=== PATIENT | male | born 1960 | race Caucasian/White ===

== ENCOUNTER → 2019-05-24 15:45 | Outpatient (CLI) | payer OTHER, SELFPAY ==
[2016-12-24 21:48] VITALS: BMI 28.5
[2019-05-24 18:17] LABS: Anion Gap 9 (5-15); BUN 17 mg/dL (7-18); BUN/Creat Ratio 11.7 RATIO (10-20); Chloride 104 mmol/L (98-107); Cholesterol 217 mg/dL (200); Creatinine, Serum 1.45 mg/dL (0.70-1.30); EST Glomerular Filtration Rate 53 mL/min (>60); Est Glom Filt Rate - Afr Amer 65 mL/min (>60); Glucose 149 mg/dL (74-106); High Density Lipoprotein 30 mg/dL; Potassium 3.7 mmol/L (3.5-5.1); Sodium Level 139 mmol/L (136-145); Triglycerides 270 mg/dL; Very Low Density Lipoprotein 54 mg/dL (5-40)
== END ==
PROVIDERS: Family Provider Family Medicine; PCP Family Medicine; Referring Provider Family Medicine; Visit Provider Family Medicine
DX: E78.00 Pure hypercholesterolemia, unspecified (principal); I10 Essential (primary) hypertension
CPT/HCPCS: 36415; 80048; 80061

== ENCOUNTER → 2020-04-24 12:07 | Outpatient (CLI) | payer OTHER, SELFPAY ==
[2016-12-24 21:48] VITALS: BMI 28.5
--- NOTE | 2020-04-24 12:12 | RAD_ITS ---
STUDY: X-RAY - PARANASAL SINUSES REASON FOR EXAM: Male, 59 years old. HEADACHES ACROSS FOREHeaD AND TEMPORAL AND THROUGHOUT FOR ABOUT 1 YEAR NOW. TECHNIQUE: 4 view(s) of the paranasal sinuses were obtained. COMPARISON: None. FINDINGS: Normal visualized frontal, maxillary, ethmoidal and sphenoid sinuses. Normal visualized facial bones. The soft tissue structures are unremarkable. RAD/Sinuses min 3 Views IMPRESSION: Normal x-rays of the paranasal sinuses. Electronically Signed: Leroy Corcoran, at 15:29 EDT , Service support ,
== END ==
PROVIDERS: PCP Family Medicine; Referring Provider Family Medicine; Visit Provider Family Medicine
DX: R51 Headache (principal)
CPT/HCPCS: 70220

== ENCOUNTER → 2020-09-12 11:02 | Outpatient (CLI) | payer OTHER, SELFPAY ==
[2016-12-24 21:48] VITALS: BMI 28.5
[2020-09-12 13:05] LABS: AST(SGOT) 16 U/L (15-37); Alanine Aminotransfer ALT/SGPT 41 U/L (16-61); Alkaline Phosphatase 79 U/L (45-117); Anion Gap 6 (5-15); BUN 16 mg/dL (7-18); Chloride 103 mmol/L (98-107); Cholesterol 133 mg/dL (200); Creatinine, Serum 1.14 mg/dL (0.70-1.30); EST Glomerular Filtration Rate 70 mL/min (>60); Est Glom Filt Rate - Afr Amer 85 mL/min (>60); Globulin 4.2 g/dL (2.2-4.2); Glucose 100 mg/dL (74-106); High Density Lipoprotein 43 mg/dL; PSA,Total - Annual Screen 1.68 ng/mL (0.00-4.00); Potassium 3.9 mmol/L (3.5-5.1); Protein, Total 8.2 g/dL (6.4-8.2); Sodium Level 138 mmol/L (136-145); Triglycerides 85 mg/dL; Very Low Density Lipoprotein 17 mg/dL (5-40)
== END ==
PROVIDERS: PCP Family Medicine; Referring Provider Family Medicine; Visit Provider Family Medicine
DX: E78.00 Pure hypercholesterolemia, unspecified (principal); Z12.5 Encounter for screening for malignant neoplasm of prostate
CPT/HCPCS: 36415; 80053; 80061; 84153; G0103

== ENCOUNTER → 2021-01-14 10:13 | Outpatient (CLI) | payer OTHER, SELFPAY ==
--- NOTE | 2021-01-14 10:18 | CT_ITS ---
STUDY: CT ABDOMEN AND PELVIS WITH CONTRAST REASON FOR EXAM: Male, 60 years old. DIVERTICULITIS, LLQ PAIN SINCE SAT, ELEV WBC, HTN, HERNIA REPAIR WITH MESH RADIATION DOSAGE (If Supplied By Facility): CTDIvol = ( 13.27 ) mGy, DLP = ( 853.63 ) mGycm TECHNIQUE: Transaxial images were obtained from the dome of the diaphragm to the symphysis pubis without oral contrast. Oral and amp; IV Gastrografin and amp; 100mL Isovue-300 was administered. Sagittal and coronal images were reconstructed. Individualized dose optimization techniques were used for this CT. COMPARISON: None. FINDINGS: The visualized lung bases are unremarkable. The visualized portions of the heart are within normal limits. Normal liver. Normal gallbladder and extrahepatic biliary system. Normal spleen. Normal pancreas. Normal bilateral adrenal glands. There is a cyst in the right kidney measures 4.3 cm. Normal left kidney. Normal visualized stomach. Normal small intestine. There is diverticulosis, with thickening of the sigmoid colon wall, and pericolonic inflammation changes consistent with acute diverticulitis. There is non-visualization of the appendix. There is diffuse atherosclerotic calcification of the abdominal aorta, without a demonstrated aneurysm. Normal inferior vena cava. Normal retroperitoneum. Normal urinary bladder. Normal abdominal wall. Normal osseous structures. CT/Abdomen/Pelvis WITH Contrast IMPRESSION: Sigmoid diverticulitis. Electronically Signed: Jorge Smith MD at 14:20 EST Tel , Service support ,
[2021-01-14 10:21] LABS: Absolute Lymphocyte Count 2.45 X10^3/uL (0.83-4.51); Absolute Neutrophil Count 9.2 X10^3/uL (2.0-7.7); Basophil# 0.05 X10^3/uL; Basophil% 0.4 % (0-1); Eosinophils% 0.8 % (0-5); Hematocrit 42.4 % (40-54); Hemoglobin 14.7 g/dL (13.0-16.5); Lymphocyte # 2.45 X10^3/ul (4.0); Lymphocyte % 18.7 % (19-41); Mean Corp Hgb Conc 34.7 g/dL (32-36); Mean Corpuscular Hgb 32.5 pg (27.0-32.0); Mean Corpuscular Volume 93.6 fL (80-94); Monocyte# 1.25 X10^3/uL; Monocyte% 9.5 % (0-10); NRBC Flagged by Analyzer 0 % (0-5); Neutrophil # 9.21 X10^3/uL (2.7-7.7); Neutrophil % 70.2 % (47-70); Platelet Count 238 K/mm3 (150-450); RBC Distribution Width SD 41.6 fl (35.1-43.9); Red Blood Count 4.53 M/mm3 (4.6-6.2); White Blood Count 13.1 K/mm3 (4.4-11.0)
[2021-01-14 10:45] LABS: ALB/GLOB Ratio 0.8 RATIO (0.9-2.4); AST(SGOT) 7 U/L (15-37); Alanine Aminotransfer ALT/SGPT 25 U/L (16-61); Albumin, Serum 3.9 g/dL (3.2-5.0); Alkaline Phosphatase 72 U/L (45-117); Anion Gap 4 (5-15); BUN 20 mg/dL (7-18); BUN/Creat Ratio 17.7 RATIO (10-20); Calcium,Total 9.5 mg/dL (8.5-10.1); Chloride 100 mmol/L (98-107); Creatinine, Serum 1.13 mg/dL (0.70-1.30); EST Glomerular Filtration Rate 71 mL/min (>60); Est Glom Filt Rate - Afr Amer 86 mL/min (>60); Globulin 4.7 g/dL (2.2-4.2); Glucose 112 mg/dL (74-106); Potassium 4.4 mmol/L (3.5-5.1); Protein, Total 8.6 g/dL (6.4-8.2); Sodium Level 135 mmol/L (136-145)
[2021-01-14 10:47] LABS: Lactic Acid 0.8 mmol/L (0.4-1.9)
== END ==
PROVIDERS: PCP Family Medicine; Referring Provider Family Medicine; Visit Provider Family Medicine
DX: K57.92 Diverticulitis of intestine, part unspecified, without perforation or abscess without bleeding (principal); R10.9 Unspecified abdominal pain
CPT/HCPCS: 36415; 74177; 80053; 83605; 85025; Q9967; A4216

== ENCOUNTER → 2021-05-29 17:50 | Outpatient (CLI) | payer OTHER, SELFPAY ==
[2016-12-24 21:48] VITALS: BMI 28.5
[2021-05-29 17:51] LABS: Bacteria 0 SEEN /hpf (None Seen); Mucous, Urine 0 SEEN /hpf (<or=2+); Squamous Epithelial Cells - UA 0 SEEN /hpf (0-5); White Blood Cells 0 SEEN /hpf (0-5)
[2021-05-29 18:44] LABS: Color, Urine Yellow (Yellow); Glucose, Dipstick Normal (Normal); Ketone-Dipstick 5 mg/dl (Negative); Leukocyte Esterase-Dipstick 25 /ul (Negative); Nitrite-Dipstick Negative (Negative); Occult Blood-Urine 150 /ul (Negative); Protein-Dipstick Negative (Negative); Specific Gravity, Urine 1.025 (1.002-1.030); Urine Bilirubin Dipstick Negative (Negative); Urine Clarity Clear (Clear); Urine Urobilinogen Normal (Normal)
[2021-05-29 19:04] LABS: Red Blood Cells-Urine 0-5 SEEN /hpf (0-5)
== END ==
PROVIDERS: PCP Family Medicine; Referring Provider Family Medicine; Visit Provider Family Medicine
DX: R31.9 Hematuria, unspecified (principal)
CPT/HCPCS: 81001; 87086

== ENCOUNTER → 2021-06-06 13:11 | Outpatient (CLI) | payer OTHER, SELFPAY ==
--- NOTE | 2021-06-06 13:17 | CT_ITS ---
STUDY: CT BRAIN WITHOUT CONTRAST REASON FOR EXAM: Male, 60 years old. Severe headache RADIATION DOSAGE (If Supplied By Facility): CTDIvol = ( 38.43 ) mGy, DLP = ( 712.69 ) mGycm TECHNIQUE: Transaxial CT imaging of the brain was performed without administration of intravenous contrast material. Individualized dose optimization techniques were used for this CT. COMPARISON: No relevant priors. FINDINGS: Normal soft tissue structures. Normal calvarium. Normal size ventricles and extra-axial spaces for the patient''s age. Normal white matter tracts of the cerebral hemispheres. Normal basal ganglia and thalami. Normal brainstem. Normal cerebellum. There is no intracranial hemorrhage. There are no findings of an acute ischemic infarction. Normal visualized paranasal sinuses. CT/Brain/Head without Contrast IMPRESSION: Normal unenhanced CT scan of the brain. Electronically Signed: Broderick Almazan MD at 13:47 EDT , Service support ,
== END ==
PROVIDERS: PCP Family Medicine; Referring Provider Family Medicine; Visit Provider Family Medicine
DX: R51.9 Headache, unspecified (principal)
CPT/HCPCS: 70450

== ENCOUNTER → 2022-12-14 | Outpatient (CLI) | payer OTHER, SELFPAY ==
[2022-12-14 12:32] LABS: Absolute Lymphocyte Count 2.43 X10^3/uL (0.83-4.51); Absolute Neutrophil Count 4.1 X10^3/uL (2.0-7.7); Basophil# 0.06 X10^3/uL; Basophil% 0.8 % (0-1); Eosinophil# 0.17 X10^3/uL; Eosinophils% 2.3 % (0-5); Hematocrit 42.4 % (40-54); Hemoglobin 14.9 g/dL (13.0-16.5); Lymphocyte # 2.43 X10^3/ul (0.83-4.51); Mean Corp Hgb Conc 35.1 g/dL (32-36); Mean Corpuscular Hgb 32.3 pg (27.0-32.0); Mean Corpuscular Volume 91.8 fL (80-94); Mean Platelet Vol. 9.4 fl (6.2-12.0); Monocyte# 0.63 X10^3/uL; Monocyte% 8.6 % (0-10); NRBC Flagged by Analyzer 0 % (0-5); Neutrophil # 4.06 X10^3/uL (2.7-7.7); Neutrophil % 55.2 % (47-70); Platelet Count 256 K/mm3 (150-450); RBC Distribution Width CV 12.2 % (11.6-14.6); Red Blood Count 4.62 M/mm3 (4.6-6.2); White Blood Count 7.4 K/mm3 (4.4-11.0)
[2022-12-14 12:38] LABS: Erythrocyte Sedimentation Rate 26 mm/hr (0-20); Vitamin D,25 Hydroxy 27.5 ng/mL
[2022-12-14 13:08] LABS: AST(SGOT) 50 U/L (15-37); Alanine Aminotransfer ALT/SGPT 128 U/L (16-61); Albumin, Serum 4.3 g/dL (3.2-5.0); Alkaline Phosphatase 84 U/L (45-117); Anion Gap 6 (5-15); BUN 22 mg/dL (7-18); BUN/Creat Ratio 21.2 RATIO (10-20); Calcium,Total 9.3 mg/dL (8.5-10.1); Chloride 109 mmol/L (98-107); Cholesterol 107 mg/dL (200); Creatinine, Serum 1.04 mg/dL (0.70-1.30); EST Glomerular Filtration Rate 77 mL/min (>60); Est Glom Filt Rate - Afr Amer 94 mL/min (>60); Globulin 4.5 g/dL (2.2-4.2); Glucose 100 mg/dL (74-106); High Density Lipoprotein 28 mg/dL; PSA,Total - Annual Screen 2.41 ng/mL (0.00-4.00); Potassium 4.2 mmol/L (3.5-5.1); Protein, Total 8.8 g/dL (6.4-8.2); Sodium Level 138 mmol/L (136-145); Thyroid Stim Hormone (TSH) 1.55 uIU/mL (0.358-3.74); Triglycerides 80 mg/dL; Very Low Density Lipoprotein 16 mg/dL (5-40)
== END | disposition home or self-care (01) ==
LOC: MFPLAB 11:18
PROVIDERS: PCP Family Medicine; Referring Provider Family Medicine; Visit Provider Family Medicine
DX: R14.0 Abdominal distension (gaseous) (principal); Z12.5 Encounter for screening for malignant neoplasm of prostate; I10 Essential (primary) hypertension; L40.9 Psoriasis, unspecified
CPT/HCPCS: 36415; 80053; 80061; 82306; 84153; 84443; 85025; 85652; G0103

== ENCOUNTER → 2023-04-26 | Outpatient (CLI) | payer OTHER, SELFPAY ==
[2023-04-26 18:15] LABS: Absolute Lymphocyte Count 1.94 X10^3/uL (0.83-4.51); Absolute Neutrophil Count 6.6 X10^3/uL (2.0-7.7); Basophil# 0.04 X10^3/uL; Basophil% 0.4 % (0-1); Eosinophil# 0.14 X10^3/uL; Eosinophils% 1.4 % (0-5); Hematocrit 37.5 % (40-54); Hemoglobin 12.9 g/dL (13.0-16.5); Lymphocyte # 1.94 X10^3/ul (0.83-4.51); Mean Corp Hgb Conc 34.4 g/dL (32-36); Mean Corpuscular Hgb 32.1 pg (27.0-32.0); Mean Corpuscular Volume 93.3 fL (80-94); Mean Platelet Vol. 9.7 fl (6.2-12.0); Monocyte# 0.93 X10^3/uL; Monocyte% 9.6 % (0-10); NRBC Flagged by Analyzer 0 % (0-5); Neutrophil # 6.61 X10^3/uL (2.7-7.7); Neutrophil % 68.3 % (47-70); Platelet Count 266 K/mm3 (150-450); RBC Distribution Width CV 11.9 % (11.6-14.6); RBC Distribution Width SD 41.2 fl (35.1-43.9); Red Blood Count 4.02 M/mm3 (4.6-6.2); White Blood Count 9.7 K/mm3 (4.4-11.0)
[2023-04-26 18:54] LABS: ALB/GLOB Ratio 0.8 RATIO (0.9-2.4); AST(SGOT) 15 U/L (15-37); Alanine Aminotransfer ALT/SGPT 25 U/L (16-61); Albumin, Serum 3.5 g/dL (3.2-5.0); Alkaline Phosphatase 64 U/L (45-117); Amylase 37 U/L (25-115); Anion Gap 7 (5-15); BUN 16 mg/dL (7-18); BUN/Creat Ratio 18.8 RATIO (10-20); Calcium,Total 9.3 mg/dL (8.5-10.1); Chloride 105 mmol/L (98-107); Creatinine, Serum 0.85 mg/dL (0.70-1.30); EST Glomerular Filtration Rate 98 mL/min (>60); Est Glom Filt Rate - Afr Amer 118 mL/min (>60); Globulin 4.4 g/dL (2.2-4.2); Glucose 88 mg/dL (74-106); Lipase 22 U/L (13-75); Potassium 3.9 mmol/L (3.5-5.1); Protein, Total 7.9 g/dL (6.4-8.2); Sodium Level 138 mmol/L (136-145)
== END | disposition home or self-care (01) ==
LOC: MFPLAB 14:51
PROVIDERS: Family Medicine; PCP Family Medicine; Visit Provider Family Medicine
DX: R10.9 Unspecified abdominal pain (principal); K57.92 Diverticulitis of intestine, part unspecified, without perforation or abscess without bleeding
CPT/HCPCS: 36415; 80053; 82150; 83690; 85025

== ENCOUNTER → 2023-05-04 | Outpatient (CLI) | payer OTHER, SELFPAY ==
--- NOTE | 2023-05-04 06:50 | CT_ITS ---
STUDY: CT CHEST, ABDOMEN T PELVIS WITH CONTRAST REASON FOR EXAM: Male, 62 years old. History of diverticulitis. RADIATION DOSAGE (If Supplied By Facility): CTDIvol = ( 14.18 ) mGy, DLP = ( 1301.49 ) mGycm TECHNIQUE: Transaxial imaging was performed following intravenous administration of Oral and amp;amp; IV Readi-CAT and amp;amp; 100mL Isovue-370. Multiplanar coronal and sagittal images were reformatted. Individualized dose optimization techniques were used for this CT. COMPARISON: Comparison is made with prior study dated January 14, 2021. FINDINGS: CHEST Small benign-appearing bilateral axillary lymph nodes. The lungs are normal. There is no demonstrated pleural abnormality. There are calcifications of the coronary arteries. Normal mediastinum. Normal hilar regions. Normal unenhanced pulmonary arteries. Normal aorta arch and descending thoracic aorta. There are multi-level degenerative changes of the thoracic spine. ABDOMEN Normal liver. Normal gallbladder and extrahepatic biliary system. Normal spleen. Normal pancreas. Normal bilateral adrenal glands. 3.1 cm x 4.8 cm cyst in the right right parapelvic region. Normal left kidney. Normal visualized stomach. Normal small intestine. There is evidence of a thickening of the distal portion of the descending colon as well as the sigmoid colon down to the rectum with increased markings in the surrounding peritoneal fat suggestive of a colitis. Scattered diverticula are seen within the sigmoid colon. Moderate amount of fecal material is seen in the colon. The appendix is visualized and appears normal. There is scattered atherosclerotic calcification of the abdominal aorta, without a demonstrated aneurysm. Normal inferior vena cava. Normal retroperitoneum. Normal abdominal wall. There are degenerative changes of the visualized lumbar spine. PELVIS Normal urinary bladder. Normal visualized small intestine. Normal visualized colon. There is no pelvic fluid. There is no pelvic lymphadenopathy or mass lesion. Normal visualized pelvic arteries. CT/CT Chest, Abd, Pel w/Contrast IMPRESSION: Colitis is seen involving the distal portion of the descending colon as well as the sigmoid colon down to the rectum. Diverticular disease is seen in the region of the sigmoid colon. Right parapelvic cyst. Electronically Signed: Leroy Corcoran MD at 11:13 EDT ,
== END | disposition home or self-care (01) ==
LOC: CT 06:48
PROVIDERS: PCP Family Medicine; Referring Provider Family Medicine; Visit Provider Family Medicine
DX: K57.92 Diverticulitis of intestine, part unspecified, without perforation or abscess without bleeding (principal)
CPT/HCPCS: 71260; 74177; Q9967

== ENCOUNTER 2023-06-22 08:09 | Emergency (ER) | payer OTHER, SELFPAY ==
[2023-06-22 08:10] VITALS: BP 139/80; PULSE 67; RESP 14; TEMP 37.2; O2SAT 98; BMI 25.3
[2023-06-22 08:57] LABS: Absolute Neutrophil Count 7.3 X10^3/uL (2.0-7.7); Basophil# 0.06 X10^3/uL; Basophil% 0.6 % (0-1); Hematocrit 41.3 % (40-54); Hemoglobin 14.1 g/dL (13.0-16.5); Lymphocyte % 21.4 % (19-41); Mean Corp Hgb Conc 34.1 g/dL (32-36); Mean Corpuscular Hgb 32.3 pg (27.0-32.0); Mean Corpuscular Volume 94.5 fL (80-94); Mean Platelet Vol. 9.3 fl (6.2-12.0); Monocyte# 0.59 X10^3/uL; Monocyte% 5.7 % (0-10); NRBC Flagged by Analyzer 0 % (0-5); Neutrophil # 7.31 X10^3/uL (2.7-7.7); Neutrophil % 70.9 % (47-70); Platelet Count 293 K/mm3 (150-450); RBC Distribution Width CV 12.5 % (11.6-14.6); RBC Distribution Width SD 43.8 fl (35.1-43.9); Red Blood Count 4.37 M/mm3 (4.6-6.2); White Blood Count 10.3 K/mm3 (4.4-11.0)
[2023-06-22 09:11] LABS: Anion Gap 5 (5-15); BUN 26 mg/dL (7-18); BUN/Creat Ratio 25.2 RATIO (10-20); Calcium,Total 9.4 mg/dL (8.5-10.1); Chloride 105 mmol/L (98-107); Creatinine, Serum 1.03 mg/dL (0.70-1.30); EST Glomerular Filtration Rate 78 mL/min (>60); Est Glom Filt Rate - Afr Amer 95 mL/min (>60); Estimated Creatinine Clearance 83.71 ml/min; Glucose 120 mg/dL (74-106); Sodium Level 138 mmol/L (136-145)
--- NOTE | 2023-06-22 09:15 | EKG12_ITS ---
Test Reason : ABD PAIN Blood Pressure : / mmHG Vent. Rate : 056 BPM Atrial Rate : 056 BPM P-R Int : 150 ms QRS Dur : 088 ms QT Int : 414 ms P-R-T Axes : -20 049 042 degrees QTc Int : 399 ms Sinus bradycardia Otherwise normal ECG Confirmed by JV ROWLEY ([id number]), editor farm journal JAELYN GOMEZ ([id number]) on 06/26/2023 9:34:07 AM Referred By: Confirmed By:JV ROWLEY
--- NOTE | 2023-06-22 09:20 | EDS_ITS ---
HPI History of Present Illness Chief Complaint: Abd Pain Narrative Narrative: Patient is a 62-year-old male who is presenting to the ER today with chief complaint of acute on chronic left lower quadrant and left upper quadrant abdominal pain. Patient has a history of diverticulitis. Last time patient was on antibiotics was 2 or 3 months ago. Patient has no fever, chills. Patient had positive COVID last week, he tested COVID again a few days ago and it was negative. Patient has no chest pain or shortness of breath. Patient's had multiple episodes of nausea vomiting this morning with left upper quadrant pain. Patient felt like he was constipated a few days ago, patient's constipation improved and he had normal bowel movement yesterday. Patient attempted to go to work today, he works in a factory. Patient's symptoms did not improve, so he came to the ER for evaluation. Patient drove to the ER. Patient's had a few episodes of clear sputum, yellowish bile, and also dry heaving prior to arrival and in the ER as well. Patient had no recent traveling, no other sick contacts. No rash. No difficulty urinating. No history of kidney stones. Patient has been told by his surgeon that he may have to have a partial colectomy secondary to multiple episodes of diverticulitis in the past 5 years. Patient states he has had approximately 2-3 CAT scans in the past 5 years, not multiple. The risk of radiation and multiple CAT scans in the future were discussed as well. [facility] Home Medications multivitamin (Multiple Vitamins tablet) 1 ea PO DAILY 12/24/16 [History Last Gaeg en Unknown] omega-3 fatty acids 300 mg capsule (Fish Oil) 300 mg PO DAILY 12/24/16 [History Last Taken Unknown] dicyclomine 10 mg capsule 20 mg (2 x 10 mg) PO TIDAC #8 CAPSULES 06/22/23 [Rx Last Taken Unknown] ondansetron 4 mg disintegrating tablet 4 mg PO 4X/DAY PRN PRN Nausea #10 tabs 06/22/23 [Rx Last Taken Unknown] Allergy/AdvReac Type Severity Reaction Status Date / Time Penicillins Allergy Other Verified 06/22/23 08:09 Social History Smoking Status: Never smoker ROS ROS ED ROS Narrative REVIEW OF SYSTEMS: Unless otherwise stated in this report the patient's positive and negative responses for review of systems for constitutional, eyes, ENT, cardiovascular, respiratory, gastrointestinal, neurological, , musculoskeletal, and integument systems and related systems to the presenting problem are either stated in the history of present illness or were not pertinent or were negative for the symptoms and/or complaints related to the presenting medical problem. EXAM Physical Exam Narrative Exam Narrative: Vital signs reviewed and patient is not hypoxic. General: The patient appears well and in no apparent distress. Patient is resting comfortably on cart. Not toxic, lethargic, or listless. Skin: Warm, dry, no pallor noted. There is no rash noted. Head: Normocephalic, atraumatic Eye: Normal conjunctiva, no drainage, EOMI. PERRL. Ears, Nose, Mouth, and Throat: oral mucosa is moist. Nares patent. Cardiovascular: Regular Rate and Rhythm, no murmurs, gallops, or rubs Respiratory: Patient is in no distress, no accessory muscle use, lungs are clear to auscultation, no wheezing, rales or rhonchi Back: non-tender, no CVA tenderness bilaterally to percussion. NO CTLS midline or paraspinal tenderness to palpation. GI: Soft, patient has mild to moderate left upper quadrant tenderness to palpation, mild left lower quadrant tenderness palpation, mild left flank pain, no CVA tenderness bilateral, no peritoneal signs, no rash, normal bowel sounds x4, otherwise no tenderness to palpation, no masses appreciated. No rebound, guarding, or rigidity noted. Musculoskeletal: The patient has full range of motion of all extremities and joints with no difficulty. Patient has no motor, no sensory deficits. Neurological: A&O x4, normal speech, no focal neurological deficits. Psychiatric: Cooperative Const Vital Signs: 06/22/23 08:10 06/22/23 09:35 06/22/23 10:17 Temperature 99 F Temperature Source Temporal Pulse Rate 67 56 L 65 Respiratory Rate 14 22 H 16 Blood Pressure 139/80 H 130/88 H 129/85 H Blood Pressure Mean 99 102 99 Pulse Ox 98 99 99 Oxygen Delivery Method Room Air Room Air Room Air [facility] Lab Data Attestation: I reviewed the patient's lab results. Labs: Laboratory Results - last 24 hr 06/22/23 06/22/23 06/22/23 08:39 08:39 08:39 WBC 10.3 RBC 4.37 L Hgb 14.1 Hct 41.3 MCV 94.5 H MCH 32.3 H MCHC 34.1 RDW Std Deviation 43.8 RDW Coeff of Dhaval 12.5 Plt Count 293 MPV 9.3 Immature Gran % (Auto) 0.400 Neut % (Auto) 70.9 H Lymph % (Auto) 21.4 [place] % (Auto) 5.7 Eos % (Auto) 1.0 Baso % (Auto) 0.6 Absolute Neuts (auto) 7.3 Absolute Lymphs (auto) 2.20 Nucleated RBC % 0 Sodium 138 138 Potassium 4.0 4.1 Chloride 105 Carbon Dioxide Anion Gap BUN Creatinine Estim Creat Clear Calc Est GFR (MDRD) Af Amer Est GFR (MDRD) Non-Af BUN/Creatinine Ratio Glucose Lactic Acid Calcium Total Bilirubin AST ALT Alkaline Phosphatase Troponin I High Sens Total Protein Albumin Globulin Albumin/Globulin Ratio Lipase Urine Color Urine Clarity Urine pH Ur Specific [place] Urine Protein Urine Glucose (UA) Urine Ketones Urine Occult Blood Urine Nitrite Urine Bilirubin Urine Urobilinogen Ur Leukocyte Esterase Urine RBC Urine WBC Ur Squamous Epith Cells Urine Bacteria Urine Mucus 06/22/23 06/22/23 06/22/23 08:39 08:39 08:39 WBC RBC Hgb Hct MCV MCH MCHC RDW Std Deviation RDW Coeff of Dhaval Plt Count MPV Immature Gran % (Auto) Neut % (Auto) Lymph % (Auto) [place] % (Auto) Eos % (Auto) Baso % (Auto) Absolute Neuts (auto) Absolute Lymphs (auto) Nucleated RBC % Sodium Potassium Chloride 106 Carbon Dioxide 28.0 27.0 Anion Gap 5 5 BUN 26 H Creatinine Estim Creat Clear Calc Est GFR (MDRD) Af Amer Est GFR (MDRD) Non-Af BUN/Creatinine Ratio Glucose Lactic Acid Calcium Total Bilirubin AST ALT Alkaline Phosphatase Troponin I High Sens Total Protein Albumin Globulin Albumin/Globulin Ratio Lipase Urine Color Urine Clarity Urine pH Ur Specific [place] Urine Protein Urine Glucose (UA) Urine Ketones Urine Occult Blood Urine Nitrite Urine Bilirubin Urine Urobilinogen Ur Leukocyte Esterase Urine RBC Urine WBC Ur Squamous Epith Cells Urine Bacteria Urine Mucus 06/22/23 06/22/23 06/22/23 08:39 08:39 08:39 WBC RBC Hgb Hct MCV MCH MCHC RDW Std Deviation RDW Coeff of Dhaval Plt Count MPV Immature Gran % (Auto) Neut % (Auto) Lymph % (Auto) [place] % (Auto) Eos % (Auto) Baso % (Auto) Absolute Neuts (auto) Absolute Lymphs (auto) Nucleated RBC % Sodium Potassium Chloride Carbon Dioxide Anion Gap BUN 26 H Creatinine 1.03 1.02 Estim Creat Clear Calc 83.71 84.53 Est GFR (MDRD) Af Amer 95 Est GFR (MDRD) Non-Af BUN/Creatinine Ratio Glucose Lactic Acid Calcium Total Bilirubin AST ALT Alkaline Phosphatase Troponin I High Sens Total Protein Albumin Globulin Albumin/Globulin Ratio Lipase Urine Color Urine Clarity Urine pH Ur Specific [place] Urine Protein Urine Glucose (UA) Urine Ketones Urine Occult Blood Urine Nitrite Urine Bilirubin Urine Urobilinogen Ur Leukocyte Esterase Urine RBC Urine WBC Ur Squamous Epith Cells Urine Bacteria Urine Mucus 06/22/23 06/22/23 06/22/23 08:39 08:39 08:39 WBC RBC Hgb Hct MCV MCH MCHC RDW Std Deviation RDW Coeff of Dhaval Plt Count MPV Immature Gran % (Auto) Neut % (Auto) Lymph % (Auto) [place] % (Auto) Eos % (Auto) Baso % (Auto) Absolute Neuts (auto) Absolute Lymphs (auto) Nucleated RBC % Sodium Potassium Chloride Carbon Dioxide Anion Gap BUN Creatinine Estim Creat Clear Calc Est GFR (MDRD) Af Amer 96 Est GFR (MDRD) Non-Af 78 79 BUN/Creatinine Ratio 25.2 H 25.5 H Glucose 120 H Lactic Acid Calcium Total Bilirubin AST ALT Alkaline Phosphatase Troponin I High Sens Total Protein Albumin Globulin Albumin/Globulin Ratio Lipase Urine Color Urine Clarity Urine pH Ur Specific [place] Urine Protein Urine Glucose (UA) Urine Ketones Urine Occult Blood Urine Nitrite Urine Bilirubin Urine Urobilinogen Ur Leukocyte Esterase Urine RBC Urine WBC Ur Squamous Epith Cells Urine Bacteria Urine Mucus 06/22/23 06/22/23 06/22/23 08:39 08:39 09:20 WBC RBC Hgb Hct MCV MCH MCHC RDW Std Deviation RDW Coeff of Dhaval Plt Count MPV Immature Gran % (Auto) Neut % (Auto) Lymph % (Auto) [place] % (Auto) Eos % (Auto) Baso % (Auto) Absolute Neuts (auto) Absolute Lymphs (auto) Nucleated RBC % Sodium Potassium Chloride Carbon Dioxide Anion Gap BUN Creatinine Estim Creat Clear Calc Est GFR (MDRD) Af Amer Est GFR (MDRD) Non-Af BUN/Creatinine Ratio Glucose 117 H Lactic Acid 1.0 Calcium 9.4 9.4 Total Bilirubin 0.40 AST 20 ALT 46 Alkaline Phosphatase 79 Troponin I High Sens 8 Total Protein 9.1 H Albumin 4.0 Globulin 5.1 H Albumin/Globulin Ratio 0.8 L Lipase 23 Urine Color Urine Clarity Urine pH Ur Specific [place] Urine Protein Urine Glucose (UA) Urine Ketones Urine Occult Blood Urine Nitrite Urine Bilirubin Urine Urobilinogen Ur Leukocyte Esterase Urine RBC Urine WBC Ur Squamous Epith Cells Urine Bacteria Urine Mucus 06/22/23 10:20 WBC RBC Hgb Hct MCV MCH MCHC RDW Std Deviation RDW Coeff of Dhaval Plt Count MPV Immature Gran % (Auto) Neut % (Auto) Lymph % (Auto) [place] % (Auto) Eos % (Auto) Baso % (Auto) Absolute Neuts (auto) Absolute Lymphs (auto) Nucleated RBC % Sodium Potassium Chloride Carbon Dioxide Anion Gap BUN Creatinine Estim Creat Clear Calc Est GFR (MDRD) Af Amer Est GFR (MDRD) Non-Af BUN/Creatinine Ratio Glucose Lactic Acid Calcium Total Bilirubin AST ALT Alkaline Phosphatase Troponin I High Sens Total Protein Albumin Globulin Albumin/Globulin Ratio Lipase Urine Color Yellow Urine Clarity Clear Urine pH 6.0 Ur Specific [place] 1.025 Urine Protein 30 H Urine Glucose (UA) Normal Urine Ketones Negative Urine Occult Blood 25 H Urine Nitrite Negative Urine Bilirubin Negative Urine Urobilinogen Normal Ur Leukocyte Esterase Negative Urine RBC 0 SEEN Urine WBC 0 SEEN Ur Squamous Epith Cells 0 SEEN Urine Bacteria 0 SEEN Urine Mucus 0 SEEN Patient has evidence of protein in his urine with mild hematuria. Patient has a history of mild hematuria in his urine, patient is aware of this. Patient will follow-up with PCP for repeat urine when he is feeling better with next appointment. EKG Initial EKG: Attestation: I personally reviewed and interpreted this EKG as follows: Comments: EKG interpretation. Sinus bradycardia at 56 beats a minute. Normal axis deviation. No acute ST elevation, no acute ectopy QTc of 399 Additional Tests and Interventions Additional Tests or Interventions: Reassessment of patient's abdomen at discharge shows mild left upper quadrant tenderness to palpation, pain is improved. Patient has no left lower quadrant tenderness palpation. Patient says this pain has been in the area where he has had diverticulitis before. No significant lab indication to perform CT of the abdomen pelvis at this time. Patient is aware this could be very early diverticulitis, but I do not feel comfortable starting patient on prophylactic antibiotics or ordering another CAT scan of his abdomen pelvis at this time because he will have future multiple CAT scans most likely secondary to his abdominal history with possible surgery in the future. Patient is comfortable not being on antibiotic at this time, he will be sent home with Rylee, patient will follow-up and call PCP if he continues to have pain in the next 2 or 3 days and at that point may need prophylactic antibiotics for diverticulitis. Patient is comfortable with this plan. Patient has been given a couple days off work if needed. Patient repeat abdominal exam does not show moderate to severe pain, no peritoneal signs, patient is comfortable at discharge as am I. Discharge Plan Triage Chief Complaint: Abd Pain ED Provider: Laci Pires Dx/Rx/DC Orders Clinical Impression: Nausea & vomiting, Abdominal pain, Dehydration Instructions: Abdominal Pain, ED Dehydration (Adult), ED Vomiting (Adult) Prescriptions: New ondansetron [ondansetron] 4 mg tablet,disintegrating 4 mg PO 4X/DAY PRN PRN (Reason: Nausea) Qty: 10 0RF dicyclomine 10 mg capsule 20 mg PO TIDAC Qty: 8 0RF No Action multivitamin [Multiple Vitamins] 1 EACH tablet 1 ea PO DAILY omega-3 fatty acids [Fish Oil] 300 MG capsule 300 mg PO DAILY Stand Alone Forms: ED Work / School Excuse Primary Care Provider: Golden Owens Referrals: Golden Owens MD [Primary Care Provider] - Activity Restrictions/Additional Instructions: Continue to increase fluids. Follow-up with PCP. Use nausea and belly cramping medication if needed . If your pain persists in the next 2 or 3 days to left upper/left lower quadrant, call PCP for possible prophylactic antibiotics. No indication for a CAT scan of your abdomen pelvis at this time. Your symptoms have improved. 2 L of IV fluid have been given to you. Return back to the ER if significant abdominal pain, nausea or vomiting return. Disposition Disposition: Home, Self Care
[2023-06-22] MEDS: 0.9% Normal Saline 1,000 ML 999 ML IV ×2 (09:32→10:55)
[2023-06-22] MEDS: Ondansetron 4 MG/2 ML Vial IV (09:32)
[2023-06-22] MEDS: Dicyclomine 20 MG/2 ML Vial IM (09:32)
[2023-06-22] MEDS: Ketorolac 15 MG/ML Vial IV (09:32)
[2023-06-22 09:35] VITALS: BP 130/88; PULSE 56; RESP 22; O2SAT 99
[2023-06-22 09:47] LABS: ALB/GLOB Ratio 0.8 RATIO (0.9-2.4); AST(SGOT) 20 U/L (15-37); Alanine Aminotransfer ALT/SGPT 46 U/L (16-61); Alkaline Phosphatase 79 U/L (45-117); Anion Gap 5 (5-15); BUN 26 mg/dL (7-18); BUN/Creat Ratio 25.5 RATIO (10-20); Calcium,Total 9.4 mg/dL (8.5-10.1); Chloride 106 mmol/L (98-107); Creatinine, Serum 1.02 mg/dL (0.70-1.30); EST Glomerular Filtration Rate 79 mL/min (>60); Est Glom Filt Rate - Afr Amer 96 mL/min (>60); Estimated Creatinine Clearance 84.53 ml/min; Globulin 5.1 g/dL (2.2-4.2); Glucose 117 mg/dL (74-106); Lipase 23 U/L (13-75); Potassium 4.1 mmol/L (3.5-5.1); Protein, Total 9.1 g/dL (6.4-8.2); Sodium Level 138 mmol/L (136-145); Troponin-I HS 8 pg/mL (3.0-78.0)
[2023-06-22 10:17] VITALS: BP 129/85; PULSE 65; RESP 16; O2SAT 99
--- NOTE | 2023-06-22 10:24 | ED.RN ---
Patient ambulatory to bathroom, gait steady. Urine collected and sent to lab
[2023-06-22 10:32] LABS: Bacteria 0 SEEN /hpf (None Seen); Mucous, Urine 0 SEEN /hpf (<or=2+); Red Blood Cells-Urine 0 SEEN /hpf (0-5); Squamous Epithelial Cells - UA 0 SEEN /hpf (0-5); White Blood Cells 0 SEEN /hpf (0-5)
[2023-06-22 10:46] LABS: Color, Urine Yellow (Yellow); Glucose, Dipstick Normal (Normal); Ketone-Dipstick Negative (Negative); Leukocyte Esterase-Dipstick Negative /ul (Negative); Nitrite-Dipstick Negative (Negative); Occult Blood-Urine 25 /ul (Negative); Protein-Dipstick 30 mg/dl (Negative); Specific Gravity, Urine 1.025 (1.002-1.030); Urine Bilirubin Dipstick Negative (Negative); Urine Clarity Clear (Clear); Urine Urobilinogen Normal (Normal)
[2023-06-22 12:06] VITALS: BP 132/75; PULSE 68; RESP 15; O2SAT 99
== END 2023-06-22 12:07 | disposition home or self-care (01) ==
PROVIDERS: Emergency Provider Emergency Medicine; PCP Family Medicine; Visit Provider Emergency Medicine
DX: E86.0 Dehydration (principal); R11.2 Nausea with vomiting, unspecified; R10.9 Unspecified abdominal pain; Z86.16 Personal history of COVID-19
CPT/HCPCS: 80048; 80053; 81001; 83605; 83690; 84484; 85025; 93005; 96361; 96372; 96374; 96375; 99283; J7030; A4216; J2405

== ENCOUNTER → 2024-01-18 | Outpatient (CLI) | payer OTHER, SELFPAY ==
[2024-01-18 18:30] LABS: AST(SGOT) 18 U/L (15-37); Alanine Aminotransfer ALT/SGPT 34 U/L (16-61); Albumin, Serum 4.1 g/dL (3.2-5.0); Alkaline Phosphatase 73 U/L (45-117); Anion Gap 6 (5-15); BUN 18 mg/dL (7-18); BUN/Creat Ratio 16.8 RATIO (10-20); Calcium,Total 9.3 mg/dL (8.5-10.1); Chloride 104 mmol/L (98-107); Cholesterol 149 mg/dL (200); Creatinine, Serum 1.07 mg/dL (0.70-1.30); EST Glomerular Filtration Rate 75 mL/min (>60); Est Glom Filt Rate - Afr Amer 90 mL/min (>60); Globulin 4.2 g/dL (2.2-4.2); Glucose 92 mg/dL (74-106); High Density Lipoprotein 38 mg/dL; PSA,Total - Annual Screen 2.24 ng/mL (0.00-4.00); Potassium 3.8 mmol/L (3.5-5.1); Protein, Total 8.3 g/dL (6.4-8.2); Sodium Level 137 mmol/L (136-145); Triglycerides 91 mg/dL; Very Low Density Lipoprotein 18 mg/dL (5-40)
== END | disposition home or self-care (01) ==
LOC: MFPLAB 15:31
PROVIDERS: PCP Family Medicine; Visit Provider Family Medicine
DX: E78.5 Hyperlipidemia, unspecified (principal); Z12.5 Encounter for screening for malignant neoplasm of prostate
CPT/HCPCS: 36415; 80053; 80061; 84153; G0103

== ENCOUNTER 2024-04-11 07:45 | Observation (INO) | payer OTHER, SELFPAY ==
[2024-04-11] VITALS (7 sets, daily range): BP systolic 106–152; BP diastolic 70–96; PULSE 52–77; RESP 12–26; TEMP 36–36.6; O2SAT 94–99; BMI 26.9
--- NOTE | 2024-04-11 07:57 | MRI_ITS ---
HISTORY: Back pain x 1 week, left buttock and hip pain radiates into left knee. TECHNIQUE: Multiplanar and multisequence MR images of the lumbar spine were obtained without intravenous contrast. 149 images. COMPARISON: CT 05/04/2023. FINDINGS: VERTEBRAE: Vertebral body heights maintained with chronic very mild anterior wedging of L1. Mild degenerative endplate changes at multiple levels. No other significant bone marrow signal abnormality. ALIGNMENT: No anterior or posterior subluxation. SPINAL CANAL: Normal morphology and position of the conus medullaris at T12-L1. 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 INTERVERTEBRAL DISCS: T12-L1: Very mild disc bulge without significant central canal stenosis or foraminal narrowing based on the sagittal images. L1-2: Mild posterior disc bulge osteophyte complex with facet arthropathy resulting in mild central canal stenosis. No significant foraminal narrowing. L2-3: Very mild disc bulge with facet arthropathy. No significant central canal stenosis or foraminal narrowing. L3-4: 5 x 12 x 9 mm left foraminal disc extrusion with superior migration resulting in left L3 nerve root impingement and moderate left foraminal narrowing. No significant central canal stenosis. L4-5, L5-S1: Very mild disc bulges with facet arthropathy resulting in mild bilateral foraminal narrowing. No significant central canal stenosis. SOFT TISSUES: 4 cm right renal cyst again seen. MRI/Spine Lumbar (Routine) IMPRESSION: Left foraminal disc extrusion of L3-4 resulting in left nerve root impingement and moderate left foraminal narrowing. Mild multilevel degenerative disc disease of the lumbar spine with mild spinal canal stenosis of L1-2. Mild bilateral foraminal narrowing in the lower lumbar spine. Electronically Signed: Bhavna Casey MD at 10:45 EDT ,
--- NOTE | 2024-04-11 07:58 | EDS_ITS ---
HPI History of Present Illness Chief Complaint: Back Detail of Chief Complaint: Back pain Informant: patient Narrative Narrative: Patient presents with severe back pain that has had for approximately a week. Denies injury but was doing some yard work prior to the pain starting. Has had no falls. Seen by his primary care physician and had some sort of a pain shot yesterday. Not get much relief. Patient describes the pain is in his left buttock and hip and radiating into his left low back as well as down his left leg to about the knee. He has numbness to the knee. Denies weakness in the leg. Unable to go to work due to the amount of pain that he is having. Denies loss of bowel or bladder function. PFSH PFSH Home Medications ?Medication ?Instructions ?Recorded ?Last Taken ?Type multivitamin (Multiple Vitamins 1 ea PO DAILY 12/24/16 Unknown History tablet) omega-3 fatty acids 300 mg capsule 300 mg PO DAILY 12/24/16 Unknown History (Fish Oil) dicyclomine 10 mg capsule 20 mg (2 x 10 mg) PO TIDAC #8 06/22/23 Unknown Rx CAPSULES ondansetron 4 mg disintegrating 4 mg PO 4X/DAY PRN PRN Nausea #10 06/22/23 Unkn own Rx tablet tabs Allergy/AdvReac Type Severity Reaction Status Date / Time Penicillins Allergy Other Verified 06/22/23 08:09 Social History Smoking Status: Never smoker ROS ROS ED Review of Systems ROS Unobtainable: other Constitutional Constitutional ED: Reports lethargy; Denies chills, fever(s), sweats or weight loss Eyes Eyes: Denies blurry vision, change in vision or diplopia ENT ENT ED: Denies rhinorrhea or sore throat Cardiovascular Cardiovascular: Denies chest pain, orthopnea or racing heartbeat Respiratory/Chest Respiratory/Chest: Denies cough, dyspnea, dyspnea on exertion, orthopnea or sputum Gastrointestinal Gastrointestinal: Denies abdominal pain, diarrhea, nausea or vomiting Genitourinary Genitourinary ED: Denies dysuria, hematuria or urinary frequency Musculoskeletal Musculoskeletal: Reports back pain; Denies arthralgias, myalgias or neck pain Integumentary Denies abscess, Abrasions or rash Neurologic Neurologic: Denies headache(s) or weakness Psychiatric Psychiatric: Denies anxiety, depression or suicidal thoughts Endocrine Endocrinology: Denies polydipsia, polyphagia or polyuria Hematologic/Lymphatic Hematologic/Lymphatic: Denies easy bleeding, easy bruising or lymphadenopathy Allergic/Immunologic Allergic/Immunologic ED: Denies mouth swelling, tongue swelling or urticaria EXAM Physical Exam Const Vital Signs: 04/11/24 07:45 04/11/24 07:47 04/11/24 10:58 Temperature 96.8 F L Temperature Source Temporal Pulse Rate 68 61 Respiratory Rate 26 H 16 Blood Pressure 149/96 H 119/76 Blood Pressure Mean 113 90 Pulse Ox 97 97 Oxygen Delivery Method Room Air Room Air Positive well nourished and well developed General Appearance ED: well developed and NAD HEENT Reports TM's clear and moist mucous membranes normocephalic and atraumatic; Negative for trauma or tenderness Tympanic Membrane ED: Yes TM's clear Eyes PERRL and EOMs intact bilaterally General Eye ED: Negative for pale conjunctiva or scleral icterus Neck no lymphadenopathy, supple and no JVD General: Negative for tenderness Chest Wall inspection of chest normal and palpation of chest normal Chest: Negative for tenderness Resp normal respiratory effort and clear to auscultation bilaterally Effort and Inspection: Negative for respiratory distress or pain with movement Auscultation: Negative for rhonchi, wheezes or diminished lung sounds Cardio regular rate, regular rhythm, S1 normal heart sound, S2 normal heart sound and no murmurs Peripheral Pulses: pulses 2+ throughout GI normal to inspection, nondistended, normoactive bowel sounds, soft to palpation, non-tender, non-distended and no masses Back/Spine no CVA tenderness and no thoracic nor lumbar tenderness Back/Spine Narrative: Positive straight leg raise with pain approximately 45 degrees while supine. Deep tendon reflexes plus 2 out of 4 bilaterally at the patella and Achilles. Normal L5 extension. Normal sensation to light touch in lower leg and somewhat decreased to the thigh and knee. No significant tenderness over the thoracic or lumbar spine. Pain somewhat reproducible into the left buttock and piriformis. Extremity normal to inspection General Extremety ED: Negative for edema General Extremity: Negative for edema Neuro oriented x3, CN's II-XII intact bilaterally, no sensory deficits noted and gait normal Sensorium / Orientation: awake, alert, oriented to person, oriented to place and oriented to time Motor Exam: strength 5/5 throughout and strength abnormal Psych mental status grossly normal Skin no rashes or lesions noted and no wounds MDM MDM MDM Narrative Medical decision making narrative: Patient presents with severe low back pain radiating to his left leg. IV line established. He was medicated with Dilaudid and Valium as well as Zofran. He continued to experience significant pain and was given a second dose of Dilaudid. Continues to complain a lot of pain with movement. MRI of the lumbar spine obtained showed left foraminal disc extrusion at L3-4 resulting in left nerve root impingement and moderate left foraminal narrowing. Patient had mild multilevel degenerative disc disease of the lumbar spine with mild spinal canal stenosis of L1-2. Spoke with Dr. De Jesus who is on for orthopedics would be happy to consult on the case. Will discuss with hospitalist to evaluate for admission for intractable back pain and lumbar radiculopathy Lab Data Attestation: I reviewed the patient's lab results. Labs: Laboratory Results - last 24 hr 04/11/24 04/11/24 08:00 11:08 WBC 6.5 RBC 4.24 L Hgb 13.4 Hct 39.3 L MCV 92.7 MCH 31.6 MCHC 34.1 RDW Std Deviation 41.1 RDW Coeff of Dhaval 12.0 Plt Count 237 MPV 8.8 Immature Gran % (Auto) 0.200 Neut % (Auto) 62.2 Lymph % (Auto) 27.8 [place] % (Auto) 7.2 Eos % (Auto) 1.8 Baso % (Auto) 0.8 Absolute Neuts (auto) 4.1 Absolute Lymphs (auto) 1.81 Nucleated RBC % 0 Sodium 137 Potassium 4.3 Chloride 108 H Carbon Dioxide 26.0 Anion Gap 3 L BUN 20 H Creatinine 1.14 Est GFR (MDRD) Af Amer 84 Est GFR (MDRD) Non-Af 69 BUN/Creatinine Ratio 17.5 Glucose 135 H Calcium 9.1 Urine Color Yellow Urine Clarity Clear Urine pH 6.0 Ur Specific [place] 1.015 Urine Protein Negative Urine Glucose (UA) Normal Urine Ketones Negative Urine Occult Blood 25 H Urine Nitrite Negative Urine Bilirubin Negative Urine Urobilinogen Normal Ur Leukocyte Esterase Negative Urine RBC 0-5 SEEN Urine WBC 0 SEEN Ur Squamous Epith Cells 0-5 SEEN Urine Bacteria 0 SEEN Urine Mucus 0 SEEN Radiography Diagnostic Testing: Clinical Impression(s) from Imaging Studies Lumbar Spine MRI 04/11/24 07:57 IMPRESSION: Left foraminal disc extrusion of L3-4 resulting in left nerve root impingement and moderate left foraminal narrowing. Mild multilevel degenerative disc disease of the lumbar spine with mild spinal canal stenosis of L1-2. Mild bilateral foraminal narrowing in the lower lumbar spine. Electronically Signed: Bhavna Casey MD at 10:45 EDT , Discharge Plan Triage Chief Complaint: Back ED Provider: Margot Lundy Dx/Rx/DC Orders Clinical Impression: Intractable back pain, Left lumbar radiculopathy Prescriptions: No Action multivitamin [Multiple Vitamins] 1 EACH tablet 1 ea PO DAILY omega-3 fatty acids [Fish Oil] 300 MG capsule 300 mg PO DAILY ondansetron [ondansetron] 4 mg tablet,disintegrating 4 mg PO 4X/DAY PRN PRN (Reason: Nausea) Qty: 10 0RF dicyclomine 10 mg capsule 20 mg PO TIDAC Qty: 8 0RF Primary Care Provider: Abelardo Owens Referrals: Abelardo Owens MD [Primary Care Provider] - Print Language: Nauruan Disposition Disposition: Acute Care Hospital [facility]
[2024-04-11] MEDS: HYDROmorphone 1 MG/ML Syringe IV ×3 (08:05→12:14)
[2024-04-11] MEDS: 0.9% Normal Saline (1000mL) 1,000 ML 150 ML IV ×2 (08:05→12:24)
[2024-04-11] MEDS: diazePAM 5 MG Tablet PO (08:05)
[2024-04-11] MEDS: Ondansetron 4 MG/2 ML Vial IV (08:05)
[2024-04-11 08:12] LABS: Absolute Lymphocyte Count 1.81 X10^3/uL (0.83-4.51); Absolute Neutrophil Count 4.1 X10^3/uL (2.0-7.7); Basophil# 0.05 X10^3/uL; Basophil% 0.8 % (0-1); Eosinophil# 0.12 X10^3/uL; Eosinophils% 1.8 % (0-5); Hematocrit 39.3 % (40-54); Hemoglobin 13.4 g/dL (13.0-16.5); Lymphocyte # 1.81 X10^3/ul (0.83-4.51); Lymphocyte % 27.8 % (19-41); Mean Corp Hgb Conc 34.1 g/dL (32-36); Mean Corpuscular Hgb 31.6 pg (27.0-32.0); Mean Corpuscular Volume 92.7 fL (80-94); Mean Platelet Vol. 8.8 fl (6.2-12.0); Monocyte# 0.47 X10^3/uL; Monocyte% 7.2 % (0-10); NRBC Flagged by Analyzer 0 % (0-5); Neutrophil # 4.06 X10^3/uL (2.7-7.7); Neutrophil % 62.2 % (47-70); Platelet Count 237 K/mm3 (150-450); RBC Distribution Width SD 41.1 fl (35.1-43.9); Red Blood Count 4.24 M/mm3 (4.6-6.2); White Blood Count 6.5 K/mm3 (4.4-11.0)
[2024-04-11 08:24] LABS: Anion Gap 3 (5-15); BUN 20 mg/dL (7-18); BUN/Creat Ratio 17.5 RATIO (10-20); Calcium,Total 9.1 mg/dL (8.5-10.1); Chloride 108 mmol/L (98-107); Creatinine, Serum 1.14 mg/dL (0.70-1.30); EST Glomerular Filtration Rate 69 mL/min (>60); Est Glom Filt Rate - Afr Amer 84 mL/min (>60); Glucose 135 mg/dL (74-106); Potassium 4.3 mmol/L (3.5-5.1); Sodium Level 137 mmol/L (136-145)
[2024-04-11 11:12] LABS: Bacteria 0 SEEN /hpf (None Seen); Mucous, Urine 0 SEEN /hpf (<or=2+); White Blood Cells 0 SEEN /hpf (0-5)
[2024-04-11 11:14] LABS: Color, Urine Yellow (Yellow); Glucose, Dipstick Normal (Normal); Ketone-Dipstick Negative (Negative); Leukocyte Esterase-Dipstick Negative /ul (Negative); Nitrite-Dipstick Negative (Negative); Occult Blood-Urine 25 /ul (Negative); Protein-Dipstick Negative (Negative); Specific Gravity, Urine 1.015 (1.002-1.030); Urine Bilirubin Dipstick Negative (Negative); Urine Clarity Clear (Clear); Urine Urobilinogen Normal (Normal)
[2024-04-11 11:22] LABS: Red Blood Cells-Urine 0-5 SEEN /hpf (0-5); Squamous Epithelial Cells - UA 0-5 SEEN /hpf (0-5)
[2024-04-11] MEDS: dexAMETHasone 10 MG/ML Vial IV (12:14)
[2024-04-11] MEDS: Acetaminophen 500 MG Tablet 1000 MG PO ×2 (14:34→21:07)
[2024-04-11] MEDS: oxyCODONE 5 MG Tablet 10 MG PO ×2 (14:35→19:40)
[2024-04-11] MEDS: Ketorolac 30 MG/ML Syringe IV ×2 (14:35→21:06)
--- NOTE | 2024-04-11 15:25 | HP.PCM.HOS_ITS ---
HPI - General General Date of Admission: 04/11/24 Date of Service: 04/11/24 Chief Complaint: hip pain HPI Narrative GLADIS RAMIREZ, is a 63 M who presents with back pain. Symptoms began about a week ago when he was doing some yard work. Pain is in his back and extending down his left leg. Patient has gotten worse during this time but more or less constant. He tries to just position which certain positions help alleviate it but does not fully eradicate the pain. He denies any bowel or bladder incontinence nor any saddle anesthesia. He has never had this problem before. Patient presented to the emergency room because the pain was so severe. He had an MRI in the emergency room that showed a left foraminal disc extrusion of L3-4 resulting in left nerve root impingement and moderate left foraminal narrowing. ED physician spoke with Dr. Rebolledo who recommended steroids and will see the patient consultation. ON LICENSE OF [facility] Medical History Hyperlipidemia HTN (hypertension) Home Medications ?Medication ?Instructions ?Recorded ?Last Taken ?Type multivitamin (Multiple Vitamins 1 ea PO DAILY 12/24/16 Unknown History tablet) atorvastatin 10 mg tablet 10 mg PO QHS 04/11/24 Unknown History lisinopril 20 mg tablet 20 mg PO DAILY 04/11/24 Unknown History tizanidine 4 mg tablet 4 mg PO TID PRN PRN pain 04/11/24 Unknown History Allergy/AdvReac Type Severity Reaction Status Date / Time Penicillins Allergy Other Verified 06/22/23 08:09 Family History (Updated 04/11/24 @ 15:[address] Demond Nino DO) Other CAD (coronary artery disease) Social History Smoking Status: Never smoker ROS ROS Narrative All review of systems were negative except as mentioned above in the history of present illness and the other review of systems. Vital Signs Vital Signs Vital Signs: 04/11/24 07:45 04/11/24 07:47 04/11/24 10:58 Temperature 36.0 C L Temperature Source Temporal Pulse Rate 68 61 Respiratory Rate 26 H 16 Blood Pressure 149/96 H 119/76 Blood Pressure Mean 113 90 Blood Pressure Source Blood Pressure Position Blood Pressure Location Pulse Ox 97 97 Oxygen Delivery Method Room Air Room Air 04/11/24 12:24 04/11/24 13:00 04/11/24 14:33 Temperature 36.0 C L 36.6 C Temperature Source Oral Pulse Rate 55 L 52 L 58 L Respiratory Rate 12 12 18 Blood Pressure 131/75 H 134/74 H 152/87 H Blood Pressure Mean 93 94 108 Blood Pressure Source Monitor Blood Pressure Position Left Lateral Blood Pressure Location Left Forearm Pulse Ox 97 94 99 Oxygen Delivery Method Room Air Weight Weight: 90.265 kg Body Mass Index (BMI) 26.9 Physical Exam Const alert and no apparent distress HEENT normocephalic and head/scalp atraumatic Neck no lymphadenopathy and supple Resp normal respiratory effort, no retractions, no use of accessory muscles and clear to auscultation bilaterally Cardio regular rate, regular rhythm, S1 normal heart sound and S2 normal heart sound GI normal to inspection, nondistended, normoactive bowel sounds, soft to palpation, non-tender and non-distended Extremity normal to inspection and full ROM Neuro Neuro Narrative: Diminished sensation of left lower extremity compared to the right. DTRs intact. Moves all extremities spontaneously. Results Lab / Micro Data 04/11/24 08:00 04/11/24 08:00 Labs: Laboratory Results - last 24 hr 04/11/24 08:00: WBC 6.5, RBC 4.24 L, Hgb 13.4, Hct 39.3 L, MCV 92.7, MCH 31.6, MCHC 34.1, RDW Std Deviation 41.1, RDW Coeff of Dhaval 12.0, Plt Count 237, MPV 8.8, Immature Gran % (Auto) 0.200, Neut % (Auto) 62.2, Lymph % (Auto) 27.8, [place] % (Auto) 7.2, Eos % (Auto) 1.8, Baso % (Auto) 0.8, Absolute Neuts (auto) 4.1, Absolute Lymphs (auto) 1.81, Nucleated RBC % 0, Sodium 137, Potassium 4.3, C hloride 108 H, Carbon Dioxide 26.0, Anion Gap 3 L, BUN 20 H, Creatinine 1.14, Est GFR (MDRD) Af Amer 84, Est GFR (MDRD) Non-Af 69, BUN/Creatinine Ratio 17.5, Glucose 135 H, Calcium 9.1 04/11/24 11:08: Urine Color Yellow, Urine Clarity Clear, Urine pH 6.0, Ur Specific [place] 1.015, Urine Protein Negative, Urine Glucose (UA) Normal, Urine Ketones Negative, Urine Occult Blood 25 H, Urine Nitrite Negative, Urine Bilirubin Negative, Urine Urobilinogen Normal, Ur Leukocyte Esterase Negative, Urine RBC 0-5 SEEN, Urine WBC 0 SEEN, Ur Squamous Epith Cells 0-5 SEEN, Urine Bacteria 0 SEEN, Urine Mucus 0 SEEN Imaging Radiology Impression Lumbar Spine MRI 04/11/24 07:57 IMPRESSION: Left foraminal disc extrusion of L3-4 resulting in left nerve root impingement and moderate left foraminal narrowing. Mild multilevel degenerative disc disease of the lumbar spine with mild spinal canal stenosis of L1-2. Mild bilateral foraminal narrowing in the lower lumbar spine. Electronically Signed: Bhavna Casey MD at 10:45 EDT Reading Location ID and State: [facility] / [place] Tel , Service support , Assessment & Plan Assessment/Plan (1) Left lumbar radiculopathy: PLAN: Plan Left L3-4 nerve root impingement secondary to disc herniation. * Pain control * Patient did receive 10 mg of dexamethasone in the emergency room. Start prednisone 60/day for 7days, then taper off * Physical therapy Occupational Therapy * Consult spine surgery for additional recommendations. Chronic conditions: * HTN: stable. continue lisinopril * HLP: continue atorvastatin. Dispostion: TBD. Charges/Coding Visit Charges Inpatient E&M: 96986 Init Hosp L2
[2024-04-11] MEDS: 0.9% Saline Lock 10 ML Syringe IV (21:08)
[2024-04-12] MEDS: oxyCODONE 5 MG Tablet 10 MG PO ×4 (02:32→17:37)
[2024-04-12 02:37] VITALS: BP 114/58; PULSE 63; RESP 18; TEMP 36.6; O2SAT 98
[2024-04-12] MEDS: 0.9% Saline Lock 10 ML Syringe IV ×4 (03:07→19:37)
[2024-04-12] MEDS: Ketorolac 30 MG/ML Syringe IV ×3 (03:07→17:37)
[2024-04-12] MEDS: Acetaminophen 500 MG Tablet 1000 MG PO ×3 (06:29→21:50)
[2024-04-12] MEDS: Dicyclomine 10 MG Capsule 20 MG PO (06:29)
--- NOTE | 2024-04-12 07:07 | PN.HOSP_ITS ---
Reason for Visit Reason for Visit: Diagnoses Radiculopathy, lumbar region (04/11/24) Subjective Subjective Still with left leg pain, though improved. Objective Data Objective Data Vital Signs: Vital Signs Temp Pulse Resp BP Pulse Ox O2 Del Method 36.6 C 63 18 114/58 L 98 Room Air 04/12/24 02:37 04/12/24 02:37 04/12/24 02:37 04/12/24 02:37 04/12/24 02:37 04/12/24 02:37 Oxygen Delivery Method Room Air Weight: 90.265 kg Body Mass Index (BMI) 26.9 Intake & Output: Intake and Output for Last 24 Hours 04/10/24 04/11/24 04/12/24 23:59 23:59 23:59 Intake Total 1232.5 / 1232.5 300 / 300 Balance 1232.5 / 1232.5 300 / 300 Lab / Micro Data 04/11/24 08:00 04/11/24 08:00 Labs: Laboratory Results - last 24 hr 04/11/24 08:00: WBC 6.5, RBC 4.24 L, Hgb 13.4, Hct 39.3 L, MCV 92.7, MCH 31.6, MCHC 34.1, RDW Std Deviation 41.1, RDW Coeff of Dhaval 12.0, Plt Count 237, MPV 8.8, Immature Gran % (Auto) 0.200, Neut % (Auto) 62.2, Lymph % (Auto) 27.8, [place] % (Auto) 7.2, Eos % (Auto) 1.8, Baso % (Auto) 0.8, Absolute Neuts (auto) 4.1, Absolute Lymphs (auto) 1.81, Nucleated RBC % 0, Sodium 137, Potassium 4.3, C hloride 108 H, Carbon Dioxide 26.0, Anion Gap 3 L, BUN 20 H, Creatinine 1.14, Est GFR (MDRD) Af Amer 84, Est GFR (MDRD) Non-Af 69, BUN/Creatinine Ratio 17.5, Glucose 135 H, Calcium 9.1 04/11/24 11:08: Urine Color Yellow, Urine Clarity Clear, Urine pH 6.0, Ur Specific [place] 1.015, Urine Protein Negative, Urine Glucose (UA) Normal, Urine Ketones Negative, Urine Occult Blood 25 H, Urine Nitrite Negative, Urine Bilirubin Negative, Urine Urobilinogen Normal, Ur Leukocyte Esterase Negative, Urine RBC 0-5 SEEN, Urine WBC 0 SEEN, Ur Squamous Epith Cells 0-5 SEEN, Urine Bacteria 0 SEEN, Urine Mucus 0 SEEN Radiography Diagnostic Testing: Radiology Impression Lumbar Spine MRI 04/11/24 07:57 IMPRESSION: Left foraminal disc extrusion of L3-4 resulting in left nerve root impingement and moderate left foraminal narrowing. Mild multilevel degenerative disc disease of the lumbar spine with mild spinal canal stenosis of L1-2. Mild bilateral foraminal narrowing in the lower lumbar spine. Electronically Signed: Bhavna Casey MD at 10:45 EDT , Physical Exam Const alert and no apparent distress HEENT head/scalp atraumatic and moist oral mucous membranes Resp normal respiratory effort, no retractions, no use of accessory muscles and clear to auscultation bilaterally Cardio regular rate and regular rhythm Extremity normal to inspection and no clubbing, cyanosis or edema Neuro oriented x3 Neuro Narrative: DTR 3/4 in left patella. diminished sensation in LLE compared to the right. Psych affect normal Assessment & Plan Assessment/Plan (1) Left lumbar radiculopathy: PLAN: Plan Left L3-4 nerve root impingement secondary to disc herniation. * Pain control * Patient did receive 10 mg of dexamethasone in the emergency room. Start prednisone 60/day for 7days, then taper off * Physical therapy Occupational Therapy * Consult spine surgery for additional recommendations. Chronic conditions: * HTN: stable. continue lisinopril * HLP: continue atorvastatin. Dispostion: TBD. Charges/Coding Visit Charges Inpatient E&M: 01424 Subs Hosp L2
[2024-04-12 09:15] VITALS: BP 111/69; PULSE 62; RESP 18; TEMP 36.6; O2SAT 98
[2024-04-12] MEDS: HYDROmorphone 0.5 MG/0.5 ML SYRINGE IV ×2 (09:22→19:37)
[2024-04-12] MEDS: Multivitamins,Therapeutic Tablet 1 TABLET PO (09:23)
--- NOTE | 2024-04-12 13:35 | CONS.ORTHO ---
HPI Consult Data Date of Consult: 04/12/24 HPI Narrative HPI Narrative: GLADIS RAMIREZ, is a 63 M who presents with low back pain and left lower extremity radiation. He was admitted to the hospital yesterday for pain control. I was requested by hospitalist team for consult. I saw the patient today in 301. He was sitting in recliner having lunch. He says that the pain started about a week ago. 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 He had severe pain that did not improve with the intramuscular steroid injection by PCP few days ago. The pain became severe enough that she started radiating down the left lower extremity into the left anterior thigh region up to the knee. He denies any right-sided symptoms. He denies any previous low back issues. He is unable to walk long distances. He says that the pain has slightly improved since yesterday and he has walked slightly earlier today. He has not had any epidural injections or physical therapy other than what he has had here and as an inpatient. [facility] Medical History Hyperlipidemia HTN (hypertension) Home Medications ?Medication ?Instructions ?Recorded ?Last Taken ?Type multivitamin (Multiple Vitamins 1 ea PO DAILY 12/24/16 Unknown History tablet) atorvastatin 10 mg tablet 10 mg PO QHS 04/11/24 Unknown History lisinopril 20 mg tablet 20 mg PO DAILY 04/11/24 Unknown History tizanidine 4 mg tablet 4 mg PO TID PRN PRN pain 04/11/24 Unknown History Allergy/AdvReac Type Severity Reaction Status Date / Time Penicillins Allergy Other Verified 06/22/23 08:09 Family History (Updated 04/11/24 @ 15:[address] Demond Nino DO) Other CAD (coronary artery disease) Social History Smoking Status: Never smoker Vital Signs Vital Signs Vital Signs: 04/11/24 14:33 04/11/24 20:03 04/11/24 20:06 Temperature 97.8 F 97.9 F Temperature Source Oral Oral Pulse Rate 58 L 77 Pulse Strength Normal (2+) Respiratory Rate 18 16 Blood Pressure 152/87 H 106/70 Blood Pressure Mean 108 82 Blood Pressure Source Monitor Monitor Blood Pressure Position Left Lateral Semi-Fowlers Blood Pressure Location Left Forearm Right Arm Pulse Ox 99 95 Oxygen Delivery Method Room Air Room Air 04/12/24 02:37 04/12/24 09:15 Temperature 97.9 F 97.9 F Temperature Source Oral Oral Pulse Rate 63 62 Pulse Strength Respiratory Rate 18 18 Blood Pressure 114/58 L 111/69 Blood Pressure Mean 76 83 Blood Pressure Source Monitor Monitor Blood Pressure Position Semi-Fowlers Semi-Fowlers Blood Pressure Location Right Arm Right Arm Pulse Ox 98 98 Oxygen Delivery Method Room Air Room Air Weight Weight: 199 lb Body Mass Index (BMI) 26.9 Physical Exam Narrative Examination of the lower back shows midline and left paraspinal redness. Neurologic motion of lower extremity shows grade 4+ power in left quadriceps all other muscle groups are 5 of 5 strength. Passive straight leg raise test is negative. Femoral stretch test is positive. Const alert and oriented x3 Lab / Micro Data 04/11/24 08:00 04/11/24 08:00 Assessment & Plan Assessment/Plan (1) Lumbar disc herniation with radiculopathy: PLAN: Plan I reviewed the MRI of the lumbar spine done yesterday. This shows L3-4 far lateral left-sided disc herniation causing severe L3 nerve compression. No upright x-rays available. Explained to him the imaging findings in detail. He has acute L3 radiculopathy on the left from the disc herniation. I explained to him the pathogenesis and natural history of acute disc herniations. Explained to him options of treatment which include continued nonoperative measures versus surgery. He does have some weakness in the left lower extremity, but he mentioned that his pain is improving with time overnight. I suggested oral versus epidural steroids through pain management. If the pain continues to improve, he could potentially avoid surgery unless weakness develops. If he continues to have significant pain and difficulties with activities of daily living, he may follow-up with me in a week if he continues to have significant pain and difficulties with activities of daily living, he may follow-up with me in a week to consider surgical intervention which would be an extraforaminal discectomy. Patient was in agreement. Charges/Coding Visit Charges Inpatient E&M: 24877 Init Hosp L3
[2024-04-12 14:13] VITALS: BP 116/76; PULSE 63; RESP 18; TEMP 36.9; O2SAT 98
--- NOTE | 2024-04-12 15:17 | CASEMGMT ---
Addendum entered by Nanda Baker 04/12/24 15:30: TC to Carla in PT to ask if they would work with pt on stairs tomorrow when they work with him. Original Note: PT OT Evals have been reviewed, OP PT recommended. RN CM into pt room, pt sitting up in chair with sitting at bedside. Introduced self and role. Pt made aware therapy recommending OP PT. Discussed DC plan regarding OP PT VS C, pt stated he prefers OP PT. Pt stated he has 12 or 13 steps to enter home and did not work with steps with therapy today. He also voices having a lot of pain still. Dr. Nino aware and states plan is to contact pain management for possible epidural. Pt aware. Pt is aware once he returns home and if it is to difficult to get in and out of home with stairs knows to call PCP or Dr. De Jesus for referral to [facility] PT.
--- NOTE | 2024-04-12 15:28 | PCM.CONS.GEN ---
Assessment & Plan Assessment/Plan (1) Lumbar disc herniation with radiculopathy: PLAN: Plan LLE radiculopathy consistent with L3 nerve root primarily, with some possible L4 inflammatory response. Pain is anterior left thigh, but also covers the anterior knee (more L4 territory), but does not extend down the whole lower extremity as would be classic for L4. Given significant stenosis, there may be somewhat limited central spread via left L3-L4 space, so central spread from L4-L5 may provide some steroid along the medial aspect of the herniation to couple with the L3-L4 TFESI. MRI was reviewed and shows L3-4 left-sided disc herniation causing significant L3 nerve compression. I reviewed Dr. Rebolledo's evaluation. Plan for left L3-L4 and L4-L5 TFESI. GIven he has significant functional limitations including limited ability to ambulate very far. -Continue current analgesic regimen including: toradol, oxycodone, and tylenol. -Hopefully he will respond well to the epidural and have less medicaiton needs and may avoid surgery. -Good strength at this time, so will monitor for symptomatic changes as this may push him more towards surgery. -Follow up 1 week after injection as outpatient. -Risks/benefits of injections were discussed at great length and patient was in agreement. HPI Consult Data Date of Consult: 04/12/24 HPI Narrative HPI Narrative: GLADIS RAMIREZ, is a 63 M who presents with low back pain and left lower extremity radiation. I have been consulted by Dr. Nino. Dr. Rebolledo evaluated the patient and recommends conservative treatment options at this time. He says that the pain started about a week ago. He was doing some yardwork, which may be the enciting event. The pain radiates fromt he back to the left anterior thigh. The pain does not extend beyond the knee. He was given a intramuscular steroid injection by his pcp a few days ago with little relief. The pain became severe enough that she started radiating down the left lower extremity into the left anterior thigh region up to the knee. He denies any right-sided symptoms. He denies any previous low back issues. He is unable to walk long distances. He says that the pain has slightly improved since yesterday and he has walked slightly earlier today. He has not had any epidural injections or physical therapy other than what he has had here and as an inpatient. [facility] Medical History Hyperlipidemia HTN (hypertension) Home Medications ?Medication ?Instructions ?Recorded ?Last Taken ?Type multivitamin (Multiple Vitamins 1 ea PO DAILY 12/24/16 Unknown History tablet) atorvastatin 10 mg tablet 10 mg PO QHS 04/11/24 Unknown History lisinopril 20 mg tablet 20 mg PO DAILY 04/11/24 Unknown History tizanidine 4 mg tablet 4 mg PO TID PRN PRN pain 04/11/24 Unknown History Allergy/AdvReac Type Severity Reaction Status Date / Time Penicillins Allergy Other Verified 06/22/23 08:09 Family History (Updated 04/11/24 @ 15:[address] Demond Nino, ) Other CAD (coronary artery disease) Social History Smoking Status: Never smoker ROS ROS Narrative All review of systems were negative except as mentioned above in the history of present illness and the other review of systems. Physical Exam Const alert and no apparent distress HEENT head/scalp atraumatic and moist oral mucous membranes Resp normal respiratory effort Extremity normal to inspection and no clubbing, cyanosis or edema Neuro oriented x3 Neuro Narrative: DTR physiologic in LE. Reduced sensation in LLE over anterior thigh and knee. Psych affect normal Lab / Micro Data 04/11/24 08:00 04/11/24 08:00 Imaging Lumbar MRI: Left foraminal disc extrusion of L3-4 resulting in left nerve root impingement and moderate left foraminal narrowing. Mild multilevel degenerative disc disease of the lumbar spine with mild spinal canal stenosis of L1-2. Mild bilateral foraminal narrowing in the lower lumbar spine.
[2024-04-12 19:33] VITALS: BP 125/107; PULSE 73; RESP 18; TEMP 36.5; O2SAT 97
[2024-04-13] VITALS (9 sets, daily range): BP systolic 111–135; BP diastolic 60–94; PULSE 53–64; RESP 16–18; TEMP 36.4–36.8; O2SAT 95–98; BMI 26.9
[2024-04-13] MEDS: HYDROmorphone 0.5 MG/0.5 ML SYRINGE IV (00:21)
[2024-04-13] MEDS: Ketorolac 30 MG/ML Syringe IV ×3 (02:53→15:55)
[2024-04-13] MEDS: 0.9% Saline Lock 10 ML Syringe IV ×2 (02:54→09:32)
[2024-04-13] MEDS: oxyCODONE 5 MG Tablet 10 MG PO ×3 (02:54→15:55)
[2024-04-13] MEDS: Dicyclomine 10 MG Capsule 20 MG PO ×2 (05:27→16:18)
[2024-04-13] MEDS: Acetaminophen 500 MG Tablet 1000 MG PO ×3 (05:28→21:23)
--- NOTE | 2024-04-13 07:15 | PN.HOSP_ITS ---
Reason for Visit Reason for Visit: Diagnoses Intervertebral disc disorders with radiculopathy, lumbar region (04/11/24) Radiculopathy, lumbar region (04/11/24) Subjective Subjective Feeling better. Still with pain in left hip, but more tolearable. Objective Data Objective Data Vital Signs: Vital Signs Temp Pulse Resp BP Pulse Ox O2 Del Method 36.6 C 60 18 129/73 H 96 Room Air 04/13/24 02:49 04/13/24 02:49 04/13/24 02:49 04/13/24 02:49 04/13/24 02:49 04/13/24 02:49 Oxygen Delivery Method Room Air Weight: 90.265 kg Body Mass Index (BMI) 26.9 Intake & Output: Intake and Output for Last 24 Hours 04/11/24 04/12/24 04/13/24 23:59 23:59 23:59 Intake Total 1232.5 / 1232.5 600 / 600 100 / 100 Balance 1232.5 / 1232.5 600 / 600 100 / 100 Lab / Micro Data 04/11/24 08:00 04/11/24 08:00 Physical Exam Const alert and no apparent distress HEENT head/scalp atraumatic and moist oral mucous membranes Extremity normal to inspection and full ROM Neuro Neuro Narrative: 2/4 DTR in left patella. Assessment & Plan Assessment/Plan (1) Left lumbar radiculopathy: PLAN: Plan Left L3-4 nerve root impingement secondary to disc herniation. * Pain control * Patient did receive 10 mg of dexamethasone in the emergency room. Start prednisone 60/day for 7days, then taper off * Physical therapy Occupational Therapy * CARLY Crouch on 04/14 of Pain Mgmt, plan for epidural injection. * Seen by Dr. Rebolledo of spine, follow up with him in 1 week. Conservative mgmt for now and hopefully avoid sugery. Chronic conditions: * HTN: stable. continue lisinopril * HLP: continue atorvastatin. Dispostion: TBD. Charges/Coding Visit Charges Inpatient E&M: 68761 Subs Hosp L1
--- NOTE | 2024-04-13 12:30 | RAD_ITS ---
PROCEDURE: Left L3-L4 and L4-L5 transforaminal epidural injection DATE OF EXAMINATION: April 13, 2024. INDICATION: Male, 63 years old. Chronic low back pain. FLUOROSCOPY TIME (if supplied): (24 seconds) minutes/seconds. 3 images were submitted. RAD/Fluor Guidance for Spine Inj IMPRESSION: Intraoperative images are provided for left L3-L4 and L4-L5 transforaminal epidural injection. Electronically Signed: Leroy Corcoran MD at 15:19 EDT ,
[2024-04-13] MEDS: Triamcinolone Acetonide 40 MG/ML Vial (14:50)
--- NOTE | 2024-04-13 15:51 | OP.PCM_ITS ---
Report of Operation Date of Procedure: 04/13/24 Pre-Operative Diagnosis: Lumbar radiculopathy, Lumbar disc herniation with radi culopathy Post-Operative Diagnosis: Lumbar radiculopathy, Lumbar disc herniation with radiculopathy Surgery/Procedure Performed:: Left L3-L4 Transforaminal Epidural Steroid Injection Surgeon: Orlin Crouch Type of Anesthesia: IV Sedation Specimen's removed: None Description of Procedure: The details of the procedure were reviewed with the patient who understands all of the risks and benefits involved. All questions have been answered, and the patient is aware of all alternative therapeutic options. Informed consent was obtained, and the patient was directed to the procedure room. A ?time-out? with two active identifiers of the patient, the procedure, and the site was performed. The patient was positioned prone on the fluoroscopy table. The back was widely sterilized using providine-iodine solution x3 and was draped in a sterile manner. Bupivacaine was used to make a skin wheel to anesthetize the skin and then used to anesthetize the subcutaneous tissue A 22 guage spinal needle was then advanced under AP, oblique and lateral fluroscopic guidance as appropriate. The needle was advanced until the tip made contact with the most infero-medial portion of the transverse process. The needle was then walked off and carefully advanced towards the foraminal. Proper needle position was then confirmed by multiple fluoroscopic views. An aspiration test was negative for blood, CSF, and other fluids. Thereafter, 1 mL of contrast was slowly injected (without incident) under live fluoroscopy and imaging revealed medial spread of the dye along the nerve root, and into the epidural space. No vascular uptake was noted. The steroid with 1cc of Bupivacaine in a total volume of 2 mL was then slowly injected slowly and intermittently without evidence of complication. Injection of contrast dye under live fluoroscopy (to confirm medial spread along the nerve root and into the epidural space) was performed at each treated nerve. The procedure was performed uneventfully and was well-tolerated by the patient. The patient was transferred to an observation room and recovered without incident. No adverse events were noted. All potential side effects and adverse events have been discussed with the patient. The patient has been instructed to call my clinic at the first sign of an adverse event, or with any other concerning symptoms.
--- NOTE | 2024-04-13 15:55 | CASEMGMT ---
LINDA SHERIDAN NOTE: Pt has returned to room after having epidural injection. Per Dr Nino, he anticipates will be discharging pt home today. LINDA SHERIDAN to room. Pt provided w/ script for OP PT and OT to eval and treat. Pt made aware he can take to any location of choice. Nikolay ISAACSN LINDA CM
[2024-04-14 03:33] VITALS: BP 114/59; PULSE 66; RESP 18; TEMP 36.6; O2SAT 96
[2024-04-14] MEDS: oxyCODONE 5 MG Tablet 10 MG PO (03:38)
[2024-04-14] MEDS: Acetaminophen 500 MG Tablet 1000 MG PO (06:50)
[2024-04-14] MEDS: Dicyclomine 10 MG Capsule 20 MG PO (06:50)
[2024-04-14 08:01] VITALS: BP 156/95; PULSE 57; RESP 17; TEMP 36.6; O2SAT 97
[2024-04-14] MEDS: Multivitamins,Therapeutic Tablet 1 TABLET PO (08:04)
--- NOTE | 2024-04-14 08:25 | DS.PCM_ITS ---
Providers Date of Admission: 04/11/24 Primary Care Physician: Dr. Abelardo Owens MD Consultations 04/11/24 14:16 Consult: Orthopedics Routine Consulting Provider: Christopher Rebolledo Reason for Consult: nerve root impingement EMERGENT Consult: No MD Notified: Yes Date Notified: 04/11/24 Time Notified: 12:07 Method of Notification: ED Physician Initiated 04/12/24 08:54 Consult: Pain Management Routine Consulting Provider: Jaylon Easton Reason for Consult: nerve root impingement EMERGENT Consult: No Notified: Yes Date Notified: 04/12/24 Time Notified: 09:18 Method of Notification: Answering Service Reason For Visit: NERVE ROOT IMPINGEMENT Diagnosis Discharge Diagnosis (1) Left lumbar radiculopathy: Status: Acute Code(s): M54.16 - Radiculopathy, lumbar region Plan Left L3-4 nerve root impingement secondary to disc herniation. * Feeling better. * Patient did receive 10 mg of dexamethasone in the emergency room. Start prednisone 60/day for 7days, then taper off * Physical therapy Occupational Therapy * Epidural injection with Dr. Crouch at Left L3-4 on 04/13. * Seen by Dr. Rebolledo of spine, follow up with him in 1 week. * Stay off work for 1 week, return to work when able to do his prior work activities safely. Chronic conditions: * HTN: stable. continue lisinopril * HLP: continue atorvastatin. Dispostion: TBD. Medications at Discharge Home Medications multivitamin (Multiple Vitamins tablet) 1 ea PO DAILY 12/24/16 atorvastatin 10 mg tablet 10 mg PO QHS 04/11/24 lisinopril 20 mg tablet 20 mg PO DAILY 04/11/24 tizanidine 4 mg tablet 4 mg PO TID PRN PRN pain 04/11/24 acetaminophen 500 mg tablet 1,000 mg (2 x 500 mg) PO Q8 #0 tabs 04/14/24 ibuprofen 200 mg tablet 600 mg (3 x 200 mg) PO Q6H PRN pain #30 tabs 04/14/24 omeprazole 20 mg tablet,delayed release 20 mg PO DAILY #20 tabs 04/14/24 oxycodone 5 mg tablet 10 mg (2 x 5 mg) PO Q4H PRN PRN Pain Score 4-10 3 days #30 tabs 04/14/24 Hospital Course Operations None Procedures - (Left L3/4 epidural injection. ) Summary of Care Provided Minutes Spent on Discharge: 32 Hospital Course: Patient presents with back pain that been going on about a week prior. Got worse. Patient had MRI and ER that showed a left foraminal disc extrusion of L3-4 resulting in left nerve root impingement and moderate left foraminal narrowing. Patient was not able to do much in regards to activity other than laying on his left side. Patient was started on steroids and received 10 mg dexamethasone in the emergency room and was started on prednisone 60 mg daily. Orthopedics recommended pain management. Patient was seen by Dr. Crouch who performed an L3-L4 epidural injection. Patient felt pretty uncomfortable after that last night patient was watched here overnight in the meantime, patient has been able to go to the bathroom, which she was not able to do before, and feels ready to go home. Still having pain, still having paresthesias and numbness in his leg but overall much improved. Patient advised to stay off work for the next week. Patient also advised to do exercises to help manipulate his disc back into place and follow-up with physical and Occupational Therapy as outpatient. Physical Exam Const alert and no apparent distress Neuro Neuro Narrative: DTR is 2 out of 4 in the left patella. Diminished sensation over his left knee. Weight / BMI Weight Weight: 90.265 kg Body Mass Index (BMI) 26.9 ABG / Lab / Microbiology Data 04/11/24 08:00 04/11/24 08:00 Radiography Diagnostic Testing: Radiology Impression Guidance Fluoroscopy 04/13/24 12:30 IMPRESSION: Intraoperative images are provided for left L3-L4 and L4-L5 transforaminal epidural injection. Electronically Signed: Leroy Corcoran MD at 15:19 EDT , D/C Instructions Discharge Diet: No restrictions Return to work on: 04/24/24 (Or sooner if released by PCP) Meaningful Use Info Meaningful Use Meaningful Use Diagnoses (Choose all that apply): None applicable Ischemic Stroke Statin Dosing Therapy Reference: STATIN DOSE THERAPY REFERENCE: * Patients > 75 years receive moderate or high dose statin therapy. * Patients 75 years or YOUNGER should receive HIGH intensity statin dose unless contraindicated. You will be required to document reason for non-treatment if statin daily dose does not meet guidelines. HIGH DOSE STATIN THERAPY DAILY Atorvastatin > than or = to 40 mg Rosuvastatin > than or = to 20 mg Amlodipine + Atorvastatin > than or = to 2.5/40 mg Ezetimibe + Simvastatin 10/80 mg Simvastatin 80mg Discharge Plan Admission Admit Date/Time: 04/11/24 12:05 Primary Reason for Your Visit: Herniated disc. Attending Provider: Demond Nino Primary Care Provider: Abelardo Owens Consulting Providers: Christopher Rebolledo; Jaylon Easton Instructions Additional Instructions / Restrictions: You had a herniated disc that caused compression when the nerves coming off your spine on your left caused severe pain in your back. He had an epidural injection on the 6. Recommend slowly easing back into your routine. I have provided a print out of some workouts that you can do at home to help with this process. Do also recommend that you do follow-up with physical therapy to continue with your recovery. Discharge Orders/Prescriptions Prescriptions: New acetaminophen 500 mg Tablet 1,000 mg PO Q8 Qty: 0 0RF oxycodone 5 mg Tablet 10 mg PO Q4H PRN PRN (Reason: Pain Score 4-10) 3 Days Qty: 30 0RF ibuprofen 200 mg tablet 600 mg PO Q6H PRN (Reason: pain) Qty: 30 0RF omeprazole 20 mg tablet,delayed release (DR/EC) 20 mg PO DAILY Qty: 20 0RF Rx Instructions: take if you are taking ibuprofen, otherwise don't take. Continued multivitamin [Multiple Vitamins] 1 EACH tablet 1 ea PO DAILY atorvastatin 10 mg tablet 10 mg PO QHS tizanidine 4 mg tablet 4 mg PO TID PRN PRN (Reason: pain) lisinopril 20 mg tablet 20 mg PO DAILY Referrals / Follow Up: Christopher Rebolledo MD [Med Staff - Active Staff] - Within 1 Week Abelardo Owens MD [Primary Care Provider] - Within 1 Week Disposition Disposition (needs filled in before D/C Order can be placed): Home, Self Care Charges/Coding Visit Charges Inpatient E&M: 67102 Disch Hosp >30min
--- NOTE | 2024-04-14 09:31 | CASEMGMT ---
Addendum entered by Mary Kamara 04/14/24 10:23: Therapy has worked w/pt and w/stairs. Pt is safe to discharge home. Therapy recommending walker. LINDA SHERIDAN to room. Pt states he does not have a walker @ home and is agreeable to getting one prior to discharge. Verbal list of DME companies. Pt does not want to get one from [employer] and states okay w/[facility] [place]. Call placed to Lula @ [facility] [place]. They have walkers available. Script for FWW obtained from Dr Nino and sent to [facility] [place] via [employer] along w/discharge summary, as requested by [facility] [place]. Lula @ [facility] [place] aware pt is discharging home today and needs walker delivered to his room prior to discharge. Plan: Home w/OP therapy. Awaiting delivery of WW to room before pt can discharge home. Original Note: LINDA SHERIDAN NOTE: Discharge order is in. Call placed to therapy to notify them to work w/pt on stairs prior to discharge, as he has a flight of stairs to get into his home. LINDA SHERIDAN to room. Pt in bed w/HOB elevated. Pt made aware therapy will be in to work w/him this morning on stairs. He voices appreciation. Reviewed OP PT/OT script that was provided yesterday and verbal list given again of local OP therapy locations. Questions answered. LINDA SHERIDAN offered to schedule appt to location of choice, but he wishes to discuss things w/his and once they decide where they would like him to go, they will call to schedule appt. He denies having any further discharge planning needs/concerns. Nikolay GUTIERREZ RN, CM
[2024-04-14] MEDS: Ketorolac 30 MG/ML Syringe IV (11:07)
[2024-04-14] MEDS: 0.9% Saline Lock 10 ML Syringe IV (11:08)
--- NOTE | 2024-04-14 12:14 | PHA.DC.MC.R ---
Pharmacy [facility] has performed discharge medication reconciliation and counseling for this patient. The patient's discharge medication list was reviewed for discrepancies and discrepancies were resolved. The patient was counseled on the following discharge medications and changes in medications for homegoing were reviewed. 1. ACETAMINOPHEN 2. IBUPROFEN 3. PRILOSEC 4. OXYCODONE The Reason for Use, instructions for use, and potential side effects were reviewed for all new medications. The patient's questions regarding all of their medications were answered. The patient was able to verbally demonstrate an understanding of their discharge medications. The patient was counselled by Lakshmi Ward PharmD candidate Medications at Discharge Home Medications multivitamin (Multiple Vitamins tablet) 1 ea PO DAILY 12/24/16 atorvastatin 10 mg tablet 10 mg PO QHS 04/11/24 lisinopril 20 mg tablet 20 mg PO DAILY 04/11/24 tizanidine 4 mg tablet 4 mg PO TID PRN PRN pain 04/11/24 acetaminophen 500 mg tablet 1,000 mg (2 x 500 mg) PO Q8 #0 tabs 04/14/24 ibuprofen 200 mg tablet 600 mg (3 x 200 mg) PO Q6H PRN pain #30 tabs 04/14/24 omeprazole 20 mg tablet,delayed release 20 mg PO DAILY #20 tabs 04/14/24 oxycodone 5 mg tablet 10 mg (2 x 5 mg) PO Q4H PRN PRN Pain Score 4-10 3 days #30 tabs 04/14/24
== END 2024-04-14 14:45 | disposition home or self-care (01) ==
LOC: ED 12:00 → MS3 14:11
PROVIDERS: Anesthesiology; Emergency Provider Emergency Medicine; PCP Family Medicine
PROC: 3E0S3BZ Introduction of Anesthetic Agent into Epidural Space, Percutaneous Approach (ICD-10-PCS; CPT 62322; principal; 2024-04-13 13:25)
DX: M51.16 Intervertebral disc disorders with radiculopathy, lumbar region (principal); I10 Essential (primary) hypertension; E78.5 Hyperlipidemia, unspecified; M48.061 Spinal stenosis, lumbar region without neurogenic claudication; Z79.899 Other long term (current) drug therapy
CPT/HCPCS: 01992; 64483; 72148; 77003; 80048; 81001; 85025; 93005; 96361; 96374; 96375; 96376; 97110; 97162; 97166; 97530; 99221; 99284; J7030; J7120; A4216; G0378; J2405

== ENCOUNTER 2024-06-01 08:00 | Outpatient (RCR) | payer OTHER, SELFPAY ==
--- NOTE | 2024-04-26 14:02 | HP.PTEVAL_ITS ---
Patient's Visit Information Visit Information Visit Information: GLADIS RAMIREZ is a 63 year old M referred to Physical Therapy by Dr. Christopher Rebolledo MD with a diagnosis of LUMBAR DISC HERNIATION. Date of Evaluation: 04/26/24 Physical Therapist: Chel Baker, PT, Cert MDT Visit Plan Frequency: 2-3x /Week Duration: 2 Months Plan: POSTURE CORRECTION/STRENGTHENING, INSTRUCTION IN APPROPRIATE BODY ME CHANICS AND ACTIVITY MODIFICATIONS. DLS STARTING WITH A NEUTRAL SPINE PROGRESSING ROM TOLERATED. JOSHUA LE ROM, STRETCHING AND STRENGTHENING. 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 CURRENTLY OFF WORK FOR THIS. Present symptoms: L BACK, L BUTTOCK/HIP, L ANTERIOR HIP/GROIN (MAYBE NOT QUITE GROIN), L THIGH, L KNEE. L KNEE NUMBNESS. PATIENT DENIESS PAIN, NUMBESS AND TINGLING BELOW THE KNEE. DENIES R BACK AND R LE SX'S. L LEG WEAKNESS. Present since: APPROX April Pain Scale: WORST 5/10, LEAST 1/10 Currently: 2/10 Is it getting better, worse or staying the same: GETTING BETTER Commenced as a result of: NO APPARENT REASON - NOTICED PAIN IN THE MIDDLE OF THE NIGHT. 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 Symptoms at onset: L LOW BACK PAIN. Worse: STANDING FOR PROLONGED PERIODS, WALKING CAN AGGREVATE IT, REACHING UP, PUTTING L SHOE AND SOCK ON, TWISTING, TURNING, GETTING IN/OUT OF CAR, LYING ON STOMACH, ROLLING ON R SIDE, WOODEN CHAIRS. Better: LYING ON L SIDE WITH L KNEE UP, GABEPENTIN, TYLONOL, MOTRIN, SITTING IN RECLINER WITH FEET UP. CHANGE OF POSITION AND TRYING TO MOVE LEGS LONG NOT TOO MUCH. Disturbed sleep: YES. Previous history/Previous treatment: UNREMARKABLE Treatment this episode: REBEKAH WITH DR. CASTELLANO 04/12/24 - IT HELPED A WHOLE LOT . ADMIT TO [facility] 04/11/24 TO 04/14/24. FOLLOW UP PENDING WITH DR. REBOLLEDO AFTER THIS PT JEFF'T TODAY. Coughing/sneezing/straining: NEGATIVE FOR INCREASED BACK OR LEG SYMPTOMS. Gait: PATIENT REPORTS HE FAVORS HIS LEFT SIDE WHEN HE WALKS NOW. TIME AND DISTANCE LIMITED. NO FALLS. Bowel or Bladder Dysfunction: NO Accidents: NO Unexplained weight loss: HAS LOST 5 TO 8 LBS SINCE THIS HAS HAPPEND. STATES HE DOES NOT HAVE MUCH APPETITE. STATES HE WILL LET THE DOCTOR KNOW TODAY. Imaging: RECENT LUMBAR MRI PMH/Recent major surgery: UNREMARKABLE. Objective Objective: Sitting/Standing Posture: REDUCED LUMBAR LORDOSIS. NO RELEVANT LATERAL SHIFT. Active Correction of posture: BETTER. REDUCES ANTERIOR L HIP PAIN. Other Observations: THIS PATIENT AMBULATES INDEP'LY INTO PT WITHOUT ANY AD'S WITH A LIMP ON THE L LE, DECREASED CADANCE AND DECREASED JOSHUA STRIDE LENGTH. HE IS ABLE TO TRANSFER INDEP'LY FROM SIT TO STAND WITHOUT UE ASSIST BUT FAVORS HIS R LE. Sensory deficit: DECREASED LIGHT TOUCH L DISTAL THIGH AND KNEE REGIONS ROM deficit: MILD JOSHUA HS AND CALF TIGHTNESS. Motor deficit: R LE HIP 4/5, KNEE 5/5, ANKLE 5/5. L HIP 3+/5, L KNEE 3-/5, L ANKLE 4-/5. PATIENT WITH EXTENSOR LAG IN SITTING AND LLE IS SHAKY WITH MMT'ING. L HIP TESTING PROVOKES PAIN. THIS PT PROCEEDED CAREFULLY WITH ALL TESTING TODAY TO MINIMIZE PAIN. Reflexes: R QUAD AND ACHILLES 1+, L QUAD 0, L ACHILLES 1+ Dural Signs: NEGATIVE JOSHUA LE'S. Lumbar mvmt loss: flex - MIN - NE ext - LORENA - PRODUCES L ANTERIOR HIP PAIN - W R SG - MOD - NE L SG - MOD - NE Core strength: FAIR Palpation: NO ACUTE LUMBAR, SACRAL, HIP OR KNEE TENDERNESS. OTHER: PATIENT IS ABLE TO WALK ON TOES AND HEELS WITHOUT UE ASSIST FOR A FEW STEPS. TREATMENT: NEUROMUSCULAR REEDUCATION - RETRAINING OF MVMT AND POSTURE FOR SITTING, LYING AND STANDING ACTIVITIES Balance/Special Test Scores Oswestry Low Back Score: 20 Goals Goal 1:: PATIENT WILL REPORT AT LEAST 75% DECREASED PAIN TO EASE ADL'S AND ALLOW FOR RETURN TO WORK Goal Time Frame: 6-8 Weeks Goal 2:: RESTORE TRUNK ROM TO WFL TO ALLOW FOR NORMAL ADL AND WORK FUNCTION Goal Time Frame: 6-8 Weeks Goal 3:: PATIENT WILL HAVE 5/5 LLE STRENGTH TO ALLOW FOR RETURN TO PRIOR LOF. Goal Time Frame: 6-8 Weeks Goal 4:: PATIENT WILL HAVE GOOD CORE STABILITY TO ALLOW FOR SAFE RETURN TO NORMAL ADL AND WORK ACTIVITIES Goal Time Frame: 6-8 Weeks Goal 5:: PATIENT WILL BE INDEP WITH A HEP FOR CONTINED IMPROVEMENT ONCE FORMAL PHYSICAL THERPAY CONCLUDES. Goal Time Frame: 6-8 Weeks Rehabilitation Potential Physical Therapy Diagnosis: THIS PATIENT PRESENTS TO PT WITH GAIT DEVIATION, GUARDED TRANSFERS, TRUNK WEAKNESS AND STIFFNESS, AND LLE WEAKNESS. Rehabilitation Potential: Good Anticipated Interventions Patient/Client Instruction: Educate patient on: Condition, Plan of Care and Risk Factors For the Purpose of:: To improve self management Therapeutic Exercise to Include: Strength training, Body mechanics, Postural training, Flexibilty training, Gait and locomotor training, Neuromotor development, In an aquatic setting and Dynamic Lumbar Stabilization For the Purpose of:: To decrease pain, To increase ROM, To improve muscle performance and motor function, To increase tolerance to activity/condition/position, To improve ability of physical actions for home/community/work/leisure, To improve gait and locomotor functions and To increase flexibility/ROM TENS: Yes IF ES: Yes Cryotherapy (ice pack, ice massage): Yes Thermo therapy (hot pack): Yes Ultrasound (thermal/non thermal): Yes For the Purpose of:: To decrease pain, To decrease swelling/inflammation and To improve nutrient delivery to tissue Text: Thank you for the opportunity to evaluate your patient. For Medicare and Medicare HMO plans, please review the plan of care and approve it. It will need to be FAXED BACK to us at [phone] for Medicare purposes. For Medicare only, by signing this I certify the plan of care. Please let me know if there are questions or concerns regarding this plan of care. Physician Signature: Date:
--- NOTE | 2024-05-15 15:21 | HP.PTREVAL_ITS ---
Re-Evaluation Intro: Dr. Christopher Rebolledo MD, It has been my pleasure to treat GLADIS RAMIREZ over the last 8 visits for LUMBAR DISC HERNIATION. Please see the progress note below for an update on the physical therapy plan of care! Subjective Subjective: SAW DR. CASTELLANO May FOR FOLLOW UP AND NO FURTHER procedures scheduled or medication prescribed. Follow up pending Aug 09 2024. STILL TAKING GABEPENTIN NEEDED. I FEEL GOOD A LOT OF THE TIME BUT IF I STAND TOO LONG IT STARTS TO INCREASE AND ACHE BUT IF I SIT DOWN FOR A LITTLE BIT I CAN GO AGAIN. I CAN WALK WITHOUT DRAGING MY LEG NOW. ITS JUST A DULL ACHE NOW. THE EX'S ARE REALLY HELPING. MOTRIN AND TYLONOL REALLY HELP TOO. TAKING THEM AT BEDTIME. PATIENT REPORTS HIS L KNEE IS STILL A LITTLE NUMB BUT IT IS GETTING BETTER. PATIENT DENIES PAIN, NUMBNESS AND TINGLING BELOW THE KNEE. Objective Objective/Function: HIS PATIENT AMBULATES INDEP'LY INTO PT WITHOUT ANY AD'S OR GROSS DEVIATIONS NOTED. HE IS ABLE TO TRANSFER INDEP'LY FROM SIT TO STAND W ITHOUT UE ASSIST. HE ASCENDS AND DESCENDS STEPS RECIP WITHOUT HR OR DEVIATION. HE IS ABLE TO TRANSFER SIT TO STAND WITH SL RLE BUT NOT SL LLE. Sensory deficit: DECREASED LIGHT TOUCH L ANTERIOR, MEDIAL AND LATERAL KNEE COMPARED TO R BUT PATIENT REPORTS IT IS IMPROVING. ROM deficit: JOSHUA LE'S WFL. Motor deficit: JOSHUA LE'S GROSSLY 5/5 EXCEPT L HIP GRADED 4/5 WITH STRAIN GAUGE PEAK FORCE OF 36.1#'S R HIP FLEX AND 28.2#'S L HIP FLEXION. PATIENT C/O MILD ANTERIOR HIP PAIN WITH L HIP FLEXION TESTING. Reflexes: UNABLE TO ELICIT JOSHUA LE DTR'S TODAY. Dural Signs: NEGATIVE JOSHUA LE'S. Lumbar mvmt loss: flex - MIN - NE ext - LORENA - INCREASES L LOW BACK - NW R SG - MIN - NE L SG - MIN - NE Core strength: FAIR Palpation: NO ACUTE LUMBAR, SACRAL, HIP OR KNEE TENDERNESS. OTHER: PATIENT IS ABLE TO WALK ON TOES AND HEELS WITHOUT UE ASSIST WITHOUT DIFFICULTY. 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 FUNCTIONAL CAPACITY TEST COULD BE CONSIDERED BEFORE RETURN TO WORK. Plan Plan Plan: PATIENT WOULD LIKE TO CONTINUE AQUATIC THERAPY AT THIS TIME AND PLANS TO DISCUSS RETURN TO WORK WITH DR. HAWKINS. CONTINUE CORE AND LLE STRENGTHENING IN PREPARATION FOR SAFE RETURN TO WORK TOLERATED. AQUATIC THERAPY 3X'S A WK X 4 WKS FOR: PAIN RELIEF TO NORMALIZE GAIT POSTURE CORRECTION/STRENGTHENING, INSTRUCTION IN APPROPRIATE BODY MECHANICS AND ACTIVITY MODIFICATIONS. DLS STARTING WITH A NEUTRAL SPINE PROGRESSING ROM TOLERATED. JOSHUA LE ROM, STRETCHING AND STRENGTHENING (FOCUS ON R HIP/QUAD STRENGTHENING). HEP INSTRUCTION Balance/Gait/Functional tests Balance/Special Test Scores Oswestry Low Back Score: 20 Goals Goals Goal 1:: PATIENT WILL REPORT AT LEAST 75% DECREASED PAIN TO EASE ADL'S AND ALLOW FOR RETURN TO WORK Goal Time Frame: 6-8 Weeks Goal Progress: Goal Met Goal 2:: RESTORE TRUNK ROM TO WFL TO ALLOW FOR NORMAL ADL AND WORK FUNCTION Goal Time Frame: 6-8 Weeks Goal Progress: Progressing Goal 3:: PATIENT WILL HAVE 5/5 LLE STRENGTH TO ALLOW FOR RETURN TO PRIOR LOF. Goal Time Frame: 6-8 Weeks Goal Progress: Progressing Goal 4:: PATIENT WILL HAVE GOOD CORE STABILITY TO ALLOW FOR SAFE RETURN TO NORMAL ADL AND WORK ACTIVITIES Goal Time Frame: 6-8 Weeks Goal Progress: Progressing Goal 5:: PATIENT WILL BE INDEP WITH A HEP FOR CONTINED IMPROVEMENT ONCE FORMAL PHYSICAL THERPAY CONCLUDES. Goal Time Frame: 6-8 Weeks Goal Progress: Progressing Anticipated Interventions Anticipated Interventions Patient/Client Instruction: Educate patient on: Condition, Plan of Care and Risk Factors For the Purpose of:: To improve self management Therapeutic Exercise to Include: Strength training, Body mechanics, Postural training, Flexibilty training, Gait and locomotor training, Neuromotor development, In an aquatic setting and Dynamic Lumbar Stabilization For the Purpose of:: To decrease pain, To increase ROM, To improve muscle performance and motor function, To increase tolerance to activity/condition/position, To improve ability of physical actions for home/community/work/leisure, To improve gait and locomotor functions and To increase flexibility/ROM TENS: Yes IF ES: Yes Cryotherapy (ice pack, ice massage): Yes Thermo therapy (hot pack): Yes Ultrasound (thermal/non thermal): Yes For the Purpose of:: To decrease pain, To decrease swelling/inflammation and To improve nutrient delivery to tissue Re-Evaluation Ending Re-evaluation ending: Please do not hesitate to contact me at [phone] by phone or if you have questions or concerns regarding this new plan of care! Sincerely, Chel Baker PT, Cert MDT
--- NOTE | 2024-05-25 15:55 | HP.OTFCE_ITS ---
Task Lift Floor (Occasional 1-33% of Day): 70 Floor (Frequent 34-66% of Day): 35 Floor (Constant 67-100% of Day): 14.7 Floor PDL: Medium Knee (Occasional 1-33% of Day): 70 Knee (Frequent 34-66% of Day): 35 Knee (Constant 67-100% of Day): 14.7 Knee PDL: Medium Waist (Occasional 1-33% of Day): 80 Waist (Frequent 34-66% of Day): 40 Waist (Constant 67-100% of Day): 16.8 Waist PDL: Medium-Heavy Shoulder (Occasional 1-33% of Day): 70 Shoulder (Frequent 34-66% of Day): 35 Shoulder (Constant 67-100% of Day): 14.7 Shoulder PDL: Medium Overhead (Occasional 1-33% of Day): 50 Overhead (Frequent 34-66% of Day): 25 Overhead (Constant 67-100% of Day): 10.5 Overhead PDL: Medium Comments: pt lifts floor, knee, shoulder as well as overhead at medium PDL pt lifts waist at medium-heavy PDL Work Activity/Posture Bending: Frequent Ability (34-66% of day) Squatting: Frequent Ability (34-66% of day) Kneeling: Frequent Ability (34-66% of day) Reaching out: Frequent Ability (34-66% of day) Reaching up: Frequent Ability (34-66% of day) Sitting: Constant Ability (67-100% of day) Walking: Frequent Ability (34-66% of day) Standing: Frequent Ability (34-66% of day) Reference Reference: Duration Sedentary Sedentary Light Light Light Medium Medium Medium Heavy Very Heavy Heavy Occasional (0-33% of day) Frequent (34-66% of day) Constant (67-100% of day) 10 # Negligible Negligible 15 # 8 # Negligible 20 # 10# Negli. 35 # 18 # 7 # 50 # 25 # 10 # 75 # 100 # >100 # 38 # 50 # >50 # 15 # 20 # >20 # Patient Information Height: 6 ft Weight:: 85.729 kg Hand Dominance: R Medical History Medical History Including Restrictions: This 63 male referred for FCE for readiness to return to work. pt was experiencing severe back pain went to ED found to have herniated disc. pt choose to complete conservative management and received epidural which he states helped with pain significantly. pt is now receiving PT services which he has been completing PT since April 28. Pt does not have any other past medical hisotry per report does have HLD and HTN per chart. pt is R hand dominant. no falls. Diagnoses Diagnoses: lumbar disc herniation with radiculopathy Symptoms Symptoms: denies pain denies numbness or tingling states endurance has improved since event due to increased physical activity per pt he is now completing exercises daily Pain Pain: denies pain Lily Questionnaire Work History Work History: currently [employer] [facility] [employer] since March 2024 pt states he works for [employer]. Prior to this pt was working at [employer] in [facility] for 2 years. prior to this pt worked at [employer] for 25 years. 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 pt has bed and bath on second floor but does also have full back on first floor states he does not need to manage steps more than 1-2x a day. Pt is I in ADL tasks as well as IADL tasks as well as yard work. reports started doing yard work 3 weeks ago. Drives. no pets. walk in shower has seat no grab bars uses bench as needed high rise commode. Physical Examination Physical Examination: pt able to complete mobility from waiting room to OT section no AD. able to sit in waiting area for approx 40 min before initiating FCE resting HR 70 bpm 02 97% ROM: BUE WFL BLE WFL Strength: LUE shoulder flexion: 34.6# tricep: 35.7# bicep: 51.6# ER: 24.3 RUE shoulder flexion: 43.9# tricep: 45.4# bicep: 49.9# ER: 39.2# LLE hip flexor: 42.0# quad: 26.9# hamstrin.1# RLE hip flexor: 42.3# quad: 29.1# hamstrin.1# use of fet 2 manual muscle maninder for objective data Right Leaf Conditioner Helper Strength Average: 83.33 Right Leaf Conditioner Helper Strength Percentile: 21.6 percentile Left Leaf Conditioner Helper Strength Average: 100.00 Left Leaf Conditioner Helper Strength Percentile: 69.1 percentile Right Lateral Pinch Average: 13.00 Right Lateral Pinch Percentile: <10th percentile Left Lateral Pinch Average: 15.00 Left Lateral Pinch Percentile: 25th percentile Right Tripod Pinch Average: 16.33 Right Tripod Pinch Percentile: 25th percentile Left Tripod Pinch Average: 18.66 Left Tripod Pinch Percentile: 75th percentile Comments: denies any increase in pain with ROM or muscle testing occ compensation with core movement Sensation: denies numbness or tingling Fine Motor: 9 hole peg : L hand 24 sec, 24 sec, 23 sec = 23.6 average pt is in 50th percentile R hand 27 sec, 22 sec, 24 sec = 24.3 average pt is in 25th percentile Balance: standing forward reach 17 indicating pt is not at increased risk for falls Non Material Handling Activities Bending: Bending 3/3 trial bending at own pace 10/10 HR 102 bpm 02 96% slight burn from fatigue bending as fast as possible 10/10 HR 101 bpm and 02 96% no external support during task wide stance bend no facial grimmice Squatting: squat 3/3 trial squat at own pace 10/10 HR 123 bpm 02 96% squat as fast as possible 10/10 HR 110 bpm 02 96% no external support needed segmented movement no reports of pain Kneeling: kneel trial 3/3 kneel at own pace 10/10 HR 116 bpm 02 97% no external support kneel as fast as possible 10/10 external support of table 129 bpm HR 98% no report of increased pain during task Reaching out/up: reaching out: 3/3 trial 10/10 own pace 10/10 rapidly Hr 129 bpm 02 98% reaching up: trial 3/3 own pace 10/10 rapidly 10/10 HR 132 02 97% no increase in pain Walking: able to walk 5 laps around therapy room 1835 feet plus treadmill for 15 min 2.2 pace and .55 miles HR between 90 and 110 during walk. pt states I could have kept going Standing: pt is able to stand for 1 hour duration during FCE states he believes he could continue standing if needed Sitting: pt is able to sit for 40 min before beginning assessment then able to sit for additional 30 for intake of history pt states he could sit for several hours before needing to stand to stretch or due to pain Climbing Stairs: able to ascend and descend 10 stairs no use of hand rail reciprocal pattern up and down no LOB Dynamic Occasional Lifting Capacity Floor Lift: box (15#)+ 55# = 70# total wide stance squat HR 96 bpm 02 97% denies increase in pain Knee Lift: box (15)+ 55#= 70# total wide stance squat Hr 144 bpm 02 97% denies increased in pain Waist Lift: box (15#)+ 65#= 80# total HR 119 bpm 02 96% denies increase in pain slight extension of back to complete Shoulder Lift: Box (15#) + 55# = 70# total HR 144 bpm 02 98% denies increase in pain slight extension of back when lifting to complete Overhead Lift: box (15#) + 35# = 50# total extends at back to lift overhead HR 123 bpm 02 97% states he feels a little bit of stain from overhead lifting however stops once lift is complete denies pain Carrying: box (15#) + 45# = 60# total for 50 feet HR 150 bpm 02 97% states no more weight due to starting to feel fatigued Comments: pt heart rate does increase with weighted lift and carry tasks pt denies pain throughout lift tasks as well as throughout entire FCE
--- NOTE | 2024-06-01 09:26 | HP.PTDCSUM_ITS ---
Discharge Summary D/C summary: It has been my pleasure to treat GLADIS RAMIREZ referred by Dr. Christopher Rebolledo MD, with the diagnosis of LUMBAR DISC HERNIATION for a total of 13 visit(s). Discharge Date: 06/01/24 Please see the following information for a summary of their discharge status. Subjective Subjective: PATIENT REPORTS HE HAD HIS FCE, IT WENT WELL AND DR. HAWKINS RELEASED HIM BACK TO WORK [employer], FULL DUTY. 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 HE STATES THE FIRST SHIFT WAS ROUGH BUT HE SEEMS TO HAVE BEEN ABLE TO BUILD STAMINA AND YESTERDAY WASN'T TOO BAD. WAS EVEN ABLE TO DO MORE WORK AT HOME AFTER WORK YESTERDAY - ABLE TO GO BUY A BATTERY AND REPLACE IT IN HIS CAR. THE ONLY THING I THINK I REALLY NEED TO DO AT THIS TIME IS BUILD MORE MUSCLE BACK UP IN MY LEFT LEG. PATIENT STATES HE HAS A SCAR SYSTEM AT HOME WITH WEIGHTS AND DOESN'T FEEL HE NEEDS PT ANYMORE. I'M DOING GREAT. Pain L LOW BACK: Pain Intensity (Out of 10): 0 L THIGH: Pain Intensity (Out of 10): 0 L KNEE: Pain Intensity (Out of 10): 1 L HIP: Pain Intensity (Out of 10): 1 Overall Improvement % Improvement: 99 Objective Objective/Function: THIS PATIENT HAS MADE GREAT PROGRESS WITH PT AND HAS SUCCESSFULLY RETURNED TO WORK. HE IS INDEP WITH A HEP AND APPROPRIATE FOR D/C. UPON EXAM TODAY: HE AMBULATES INDEP'LY INTO PT WITHOUT ANY AD'S OR GROSS DEVIATIONS NOTED. HE IS ABLE TO TRANSFER INDEP'LY FROM SIT TO STAND WITHOUT UE ASSIST. HE IS ABLE TO TRANSFER SIT TO STAND WITH SL RLE BUT STILL NOT SL LLE. HE HAS GOOD CORE STRENGTH. PEAK FORCE STRENGTH: HIP FLEX R 49.8, L 42.2 LBS HIP EXT R 52, L 45.6 LBS HIP ABD R 51, L 45.2 LBS KNEE FLEX R 65.8, L 65.2 LBS KNEE EXT R 57.7, 56.2 LBS Goals Goal 1:: PATIENT WILL REPORT AT LEAST 75% DECREASED PAIN TO EASE ADL'S AND ALLOW FOR RETURN TO WORK Goal Progress: Goal Met Goal 2:: RESTORE TRUNK ROM TO WFL TO ALLOW FOR NORMAL ADL AND WORK FUNCTION Goal Progress: Progressing Goal 3:: PATIENT WILL HAVE 5/5 LLE STRENGTH TO ALLOW FOR RETURN TO PRIOR LOF. Goal Progress: Progressing Goal 4:: PATIENT WILL HAVE GOOD CORE STABILITY TO ALLOW FOR SAFE RETURN TO NORMAL ADL AND WORK ACTIVITIES Goal Progress: Goal Met Goal 5:: PATIENT WILL BE INDEP WITH A HEP FOR CONTINED IMPROVEMENT ONCE FORMAL PHYSICAL THERPAY CONCLUDES. Goal Progress: Goal Met Plan Plan: D/C. PATIENT AGREEABLE. D/C Information d/c sentence: If there are questions or concerns regarding this patient's physical therapy, please feel free to call me at [phone]. Thank you for the referral of this patient. Sincerely, Chel Baker, PT, Cert MDT Balance/Gait/Functional tests Balance/Special Test Scores Oswestry Low Back Score: 0 Improvement % Improvement: 99
== END 2024-06-01 13:02 | disposition home or self-care (01) ==
LOC: PT 08:00
PROVIDERS: PCP Family Medicine; Visit Provider Orthopaedic Surgery Orthopaedic Surgery of the Spine
DX: M51.16 Intervertebral disc disorders with radiculopathy, lumbar region (principal)
CPT/HCPCS: 97112; 97113; 97162; 97530; 97750

== ENCOUNTER → 2025-01-23 | Outpatient (CLI) | payer OTHER, SELFPAY ==
[2025-01-23 12:37] LABS: ALB/GLOB Ratio 1.4 RATIO (0.9-2.4); AST(SGOT) 26 U/L (<=37); Alanine Aminotransfer ALT/SGPT 45 U/L (<=46); Albumin, Serum 4.4 g/dL (3.4-4.8); Alkaline Phosphatase 73 U/L (40-129); Anion Gap 11 (5-15); BUN 15 mg/dL (4-19); Calcium,Total 9.6 mg/dL (7.6-11.0); Carbon Dioxide 24.9 mmol/L (21.0-32.0); Chloride 103 mmol/L (98-108); Cholesterol 168 mg/dL (<=200); Creatinine, Serum 1.09 mg/dL (0.70-1.20); EST Glomerular Filtration Rate 77 (>60); Globulin 3.2 g/dL (2.2-4.2); Glucose 110 mg/dL (70-99); High Density Lipoprotein 39 mg/dL; Low Density Lipoprotein Calc. 113 mg/dL; PSA,Total - Annual Screen 1.95 ng/mL (0.02-4.00); Potassium 4.2 mmol/L (3.3-5.1); Protein, Total 7.6 g/dL (5.9-8.4); Sodium Level 139 mmol/L (133-145); Total Bilirubin 0.48 mg/dL (0.00-1.30); Triglycerides 80 mg/dL; Very Low Density Lipoprotein 16 mg/dL (5-40); cholesterol:hdl ratio screen 4.34
== END | disposition home or self-care (01) ==
LOC: MFPLAB 10:20
PROVIDERS: PCP Family Medicine; Referring Provider Family Medicine; Visit Provider Family Medicine
DX: I10 Essential (primary) hypertension (principal); Z12.5 Encounter for screening for malignant neoplasm of prostate
CPT/HCPCS: 36415; 80053; 80061; 84153; G0103